=== PATIENT | male | born 1970 | race American Indian/Alaskan Native ===

== ENCOUNTER 2021-03-15 19:10 | Inpatient (IN) | payer OTHER ==
[2021-03-15] MEDS ORDERED: DILTIAZEM DRIP BOLUS FROM BAG 1 MG SOLN IV ONE (19:22)
[2021-03-15] MEDS ORDERED: HEPARIN SODIUM 1,000 UN/ML (10ML VL) IV ONE (19:23)
[2021-03-15] MEDS ORDERED: HEPARIN SODIUM 1,000 UN/ML (10ML VL) IV PRN (19:23)
[2021-03-15] MEDS ORDERED: HEPARIN SOD,PORK IN 0.45% NACL 25,000 UNIT in 0.45% NACL 1 250ML.BAG IV SCH (19:30)
[2021-03-15 19:45] LABS: Basophils # (A) 0.1 k/uL (0-0.2); Basophils % (A) 1 %; Eosinophils # (A) 0.1 k/uL (0-0.7); Eosinophils % (A) 1 %; HCT 45.4 % (39.0-53.0); HGB 15.4 gm/dL (13.0-17.5); Lymphocytes # (A) 2.3 k/uL (1.0-4.8); Lymphocytes % (A) 13 %; MCH 31.4 pg (25.0-35.0); MCV 92.3 fL (80.0-100.0); Mean Platelet Volume 9.3; Monocytes % (A) 6 %; Neutrophils # (A) 14.1 k/uL (1.3-7.7); Neutrophils % (A) 79 %; Platelet Count 253 k/uL (150-450); RBC 4.92 m/uL (4.30-5.90); WBC 17.9 k/uL (3.8-10.6)
[2021-03-15 19:55] LABS: Partial Thromboplastin Time 24.5 sec (22.0-30.0); Prothrombin Time 10.8 sec (9.0-12.0)
[2021-03-15 19:56] LABS: Albumin 4.1 g/dL (3.5-5.0); Calcium 9.7 mg/dL (8.4-10.2); Magnesium 1.5 mg/dL (1.6-2.3); Total Bilirubin 0.8 mg/dL (0.2-1.3); Total Protein 7.5 g/dL (6.3-8.2)
[2021-03-15 20:16] LABS: Potassium 4.7 mmol/L (3.5-5.1)
[2021-03-15] MEDS: DILTIAZEM 125 MG in SODIUM CHLORIDE 0.9% 100 ML IV SCH (20:20)
[2021-03-15] MEDS ORDERED: MAGNESIUM SULFATE-D5W PMX 1 GM in DEXTROSE/WATER 1 100ML.BAG IVPB ONE (21:06)
[2021-03-15] MEDS ORDERED: NITROGLYCERIN SL TABS 0.4 MG TAB SUBLINGUAL PRN (21:12)
[2021-03-15] MEDS ORDERED: atenoloL 50 MG TAB PO STA (21:15)
--- NOTE | 2021-03-15 21:32 | ED ---
Anxiety HPI - General Chief Complaint: Chest Pain Stated Complaint: Afib Time Seen by Provider: 03/15/21 19:22 Source: patient, EMS Mode of arrival: EMS - Related Data Home Medications: Home Medications Medication Instructions Recorded Confirmed Albuterol Inhaler (Mhu) [Ventolin 1 - 2 puff INHALATION Q6HR PRN 06/10/16 08/05/16 Hfa Inhaler] Aspirin [Adult Low Dose Aspirin EC] 81 mg PO DAILY 06/10/16 08/05/16 Atenolol [Tenormin] 100 mg PO DAILY 06/10/16 08/05/16 Atorvastatin [Lipitor] 40 mg PO HS 06/10/16 08/05/16 Cholecalciferol [Vitamin D3] 2,000 unit PO DAILY 06/10/16 08/05/16 Digoxin [Lanoxin] 125 mcg PO DAILY 06/10/16 08/05/16 Furosemide [Lasix] 40 mg PO DAILY 06/10/16 08/05/16 Gabapentin [Neurontin] 300 mg PO BID 06/10/16 08/05/16 Ibuprofen [Motrin] 800 mg PO BID PRN 06/10/16 08/05/16 Omeprazole [PriLOSEC] 20 mg PO AC-BRKFST 06/10/16 08/05/16 Potassium Chloride ER [K-Dur 10] 10 meq PO DAILY 06/10/16 08/05/16 Ranitidine HCl 150 mg PO BID 06/10/16 08/05/16 buPROPion [Wellbutrin] 150 mg PO BID 06/10/16 08/05/16 traMADol HCL [Ultram] 50 mg PO Q6HR PRN 06/10/16 08/05/16 Allergies/Adverse Reactions: Allergies Allergy/AdvReac Type Severity Reaction Status Date / Time No Known Allergies Allergy Verified 03/15/21 19:20 Review of Systems ROS Statement: Those systems with pertinent positive or pertinent negative responses have been documented in the HPI. ROS Other: All systems not noted in ROS Statement are negative. Past Medical History Past Medical History: Heart Failure, COPD, Hyperlipidemia, Pneumonia, Vascular Disorder History of Any Multi-Drug Resistant Organisms: None Reported Past Surgical History: Orthopedic Surgery Additional Past Surgical History / Comment(s): left foot 4 and 5th toe am putation Past Anesthesia/Blood Transfusion Reactions: No Reported Reaction Past Psychological History: Anxiety, Depression Smoking Status: Current every day smoker Past Alcohol Use History: None Reported Past Drug Use History: None Reported - Past Family History Father Family Medical History: Cancer, Congestive Heart Failure (CHF) General Exam Limitations: no limitations Course Vital Signs 03/15/21 03/15/21 03/15/21 19:15 20:39 21:05 Temperature 97.9 F Pulse Rate 119 H 109 H 110 H Respiratory 20 20 20 Rate Blood Pressure 137/94 130/88 O2 Sat by Pulse 98 98 Oximetry Procedures - [place] Protocol (Time Out) Nurse: Mariaelena Mcintosh Medical Decision Making - Lab Data Result diagrams: 03/15/21 19:23 03/15/21 19:23 Lab Results 03/15/21 03/15/21 03/15/21 Range/Units 19:23 19:23 19:23 WBC 17.9 H (3.8-10.6) k/uL RBC 4.92 (4.30-5.90) m/uL Hgb 15.4 (13.0-17.5) gm/dL Hct 45.4 (39.0-53.0) % MCV 92.3 (80.0-100.0) fL MCH 31.4 (25.0-35.0) pg MCHC 34.0 (31.0-37.0) g/dL RDW 14.0 (11.5-15.5) % Plt Count 253 (150-450) k/uL MPV 9.3 Neutrophils % 79 % Lymphocytes % 13 % Monocytes % 6 % Eosinophils % 1 % Basophils % 1 % Neutrophils # 14.1 H (1.3-7.7) k/uL Lymphocytes # 2.3 (1.0-4.8) k/uL Monocytes # 1.0 (0-1.0) k/uL Eosinophils # 0.1 (0-0.7) k/uL Basophils # 0.1 (0-0.2) k/uL PT 10.8 (9.0-12.0) sec INR 1.0 (<1.2) APTT 24.5 (22.0-30.0) sec D-Dimer 0.37 (<0.60) mg/L FEU Sodium 133 L (137-145) mmol/L Potassium 4.7 (3.5-5.1) mmol/L Chloride 98 (98-107) mmol/L Carbon Dioxide 26 (22-30) mmol/L Anion Gap 9 mmol/L BUN 26 H (9-20) mg/dL Creatinine 1.52 H (0.66-1.25) mg/dL Est GFR (CKD-EPI)AfAm 60 (>60 ml/min/1.73 sqM) Est GFR (CKD-EPI)NonAf 52 (>60 ml/min/1.73 sqM) Glucose 165 H (74-99) mg/dL Calcium 9.7 (8.4-10.2) mg/dL Magnesium 1.5 L (1.6-2.3) mg/dL Total Bilirubin 0.8 (0.2-1.3) mg/dL AST 21 (17-59) U/L ALT 23 (4-49) U/L Alkaline Phosphatase 98 (38-126) U/L Troponin I (0.000-0.034) ng/mL NT-Pro-B Natriuret Pep pg/mL Total Protein 7.5 (6.3-8.2) g/dL Albumin 4.1 (3.5-5.0) g/dL 03/15/21 03/15/21 Range/Units 19:23 19:23 WBC (3.8-10.6) k/uL RBC (4.30-5.90) m/uL Hgb (13.0-17.5) gm/dL Hct (39.0-53.0) % MCV (80.0-100.0) fL MCH (25.0-35.0) pg MCHC (31.0-37.0) g/dL RDW (11.5-15.5) % Plt Count (150-450) k/uL MPV Neutrophils % % Lymphocytes % % Monocytes % % Eosinophils % % Basophils % % Neutrophils # (1.3-7.7) k/uL Lymphocytes # (1.0-4.8) k/uL Monocytes # (0-1.0) k/uL Eosinophils # (0-0.7) k/uL Basophils # (0-0.2) k/uL PT (9.0-12.0) sec INR (<1.2) APTT (22.0-30.0) sec D-Dimer (<0.60) mg/L FEU Sodium (137-145) mmol/L Potassium (3.5-5.1) mmol/L Chloride (98-107) mmol/L Carbon Dioxide (22-30) mmol/L Anion Gap mmol/L BUN (9-20) mg/dL Creatinine (0.66-1.25) mg/dL Est GFR (CKD-EPI)AfAm (>60 ml/min/1.73 sqM) Est GFR (CKD-EPI)NonAf (>60 ml/min/1.73 sqM) Glucose (74-99) mg/dL Calcium (8.4-10.2) mg/dL Magnesium (1.6-2.3) mg/dL Total Bilirubin (0.2-1.3) mg/dL AST (17-59) U/L ALT (4-49) U/L Alkaline Phosphatase (38-126) U/L Troponin I 0.143 H* (0.000-0.034) ng/mL NT-Pro-B Natriuret Pep 219 pg/mL Total Protein (6.3-8.2) g/dL Albumin (3.5-5.0) g/dL
--- NOTE | 2021-03-15 21:43 | ED ---
Chest Pain HPI - General Chief Complaint: Chest Pain Stated Complaint: Afib Time Seen by Provider: 03/15/21 19:22 Source: patient, EMS Mode of arrival: EMS Limitations: no limitations - History of Present Illness Initial Comments: Dilan is a 51-year-old male with extensive past medical history for known A. fib, episodes of RVR CT in the past, diabetes morbid obesity. Patient reports that he has trouble keeping all his medications straightened getting refills on time. He did not get his cardiac meds refilled and he has been out of his digoxin and L Rosalinda for somewhere between 1 and 2 weeks. He has been experiencing some chest pressure and palpitations so he sought care at [facility] where he was found to be an a tachydysrhythmia with rates in the 220s. He was given adenosine and Cardizem and started on a Cardizem drip he apparently converted to a sinus rhythm for a short period of time and is transported to our hospital with no medications. Upon arrival the patient was again in A. fib RVR with a rate in the 120s. He was experiencing no active chest pain. - Related Data Home Medications Medication Instructions Recorded Confirmed Aspirin [Adult Low Dose Aspirin EC] 81 mg PO DAILY 06/10/16 03/15/21 Atorvastatin [Lipitor] 40 mg PO HS 06/10/16 03/15/21 Digoxin [Lanoxin] 125 mcg PO DAILY 06/10/16 03/15/21 Furosemide [Lasix] 40 mg PO DAILY 06/10/16 03/15/21 Omeprazole [PriLOSEC] 20 mg PO AC-BRKFST 06/10/16 03/15/21 Potassium Chloride ER [K-Dur 10] 10 meq PO DAILY 06/10/16 03/15/21 Albuterol Sulfate [Ventolin HFA] 1 - 2 puff INHALATION RT-Q6H PRN 03/15/21 03/15/21 Apixaban [Eliquis] 5 mg PO BID 03/15/21 03/15/21 Beclomethasone Dipropionate [Qvar 1 puff PO DIRECTED PRN 03/15/21 03/15/21 80mcg Redihaler] Cholecalciferol [Vitamin D3 (25 50 mcg PO DAILY 03/15/21 03/15/21 Mcg = 1000 Iu)] Fluticasone Propionate [Flovent 1 - 2 puff INHALATION RT-BID 03/15/21 03/15/21 Hfa 220 mcg] Insulin Glargine,Hum.rec.anlog 14 unit SQ HS 03/15/21 03/15/21 [Lantus Solostar Pen] Insulin Lispro [humaLOG Kwikpen] See Protocol SQ TID-W/MEALS PRN 03/15/21 RX: Amiodarone [Cordarone] 200 mg PO DAILY 03/15/21 03/15/21 RX: Famotidine 20 mg PO BID 03/15/21 03/15/21 RX: Gabapentin 600 mg PO TID 03/15/21 03/15/21 RX: Losartan Potassium [Cozaar] 25 mg PO DAILY 03/15/21 03/15/21 RX: Metoprolol Tartrate [Lopressor] 100 mg PO DAILY 03/15/21 03/15/21 RX: glipiZIDE [Glucotrol] 10 mg PO BID 03/15/21 03/15/21 RX: metFORMIN HCL [Glucophage] 1,000 mg PO BID 03/15/21 03/15/21 buPROPion SR [Wellbutrin SR] 150 mg PO BID 03/15/21 03/15/21 Allergies Allergy/AdvReac Type Severity Reaction Status Date / Time No Known Allergies Allergy Verified 03/15/21 21:43 Review of Systems ROS Statement: Those systems with pertinent positive or pertinent negative responses have been documented in the HPI. ROS Other: All systems not noted in ROS Statement are negative. EKG Findings - EKG Comments: EKG Findings:: EKG was obtained due to tachycardia, EKG obtained in 1913 rate is 119 rhythm is narrow complex irregularly irregular consistent with A. fib with RVR. No acute ST elevations or depressions no evidence of acute ischemia or infarction. 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 Past Anesthesia/Blood Transfusion Reactions: No Reported Reaction Past Psychological History: Anxiety, Depression Smoking Status: Current every day smoker Past Alcohol Use History: None Reported Past Drug Use History: None Reported - Past Family History Father Family Medical History: Cancer, Congestive Heart Failure (CHF) General Exam - General Exam Comments Initial Comments: Physical Exam GENERAL: Morbidly obese chronically ill-appearing gentleman in no acute distress HENT: Normocephalic, Atraumatic. EYES: PERRL, EOMI PULMONARY: Unlabored respirations CARDIOVASCULAR: Tachycardic irregular ABDOMEN: Obese, soft SKIN: On a venous stasis bilateral lower extremities : Deferred NEUROLOGIC: Patient is alert and oriented x3. Moving all extremities spontaneously MUSCULOSKELETAL: Normal extremities with adequate strength and full range of motion. No lower extremity swelling or edema. No calf tenderness. PSYCHIATRIC: Normal psychiatric evaluation. Limitations: no limitations Course Vital Signs 03/15/21 03/15/21 03/15/21 19:15 20:39 21:05 Temperature 97.9 F Pulse Rate 119 H 109 H 110 H Respiratory 20 20 20 Rate Blood Pressure 137/94 130/88 O2 Sat by Pulse 98 98 Oximetry Procedures - [place] Protocol (Time Out) Nurse: Mariaelena Mcintosh Chest Pain MDM - [facility] Patient was seen and evaluated, history is obtained from the patient and transferring doctor Cardiac workup was initiated Cardizem was resumed Labs resulted with elevated troponin this is likely type IIN STEMI due to demand ischemia with a heart rate greater than 200 Patient care was discussed with datastage developer Dr. Duran who agrees with Ivanna, D.O. blockers as prescribed for home medications, heparin drip and admission with cardiology consultation Disposition Clinical Impression: Acute non-ST elevation myocardial infarction (NSTEMI), Atrial fibrillation with RVR, Medication non-compliance due to excessive pill burden Disposition: ADMITTED IP TO THIS HOSP Condition: Serious Is patient prescribed a controlled substance at d/c from ED?: No
[2021-03-16] MEDS ORDERED: VANCOMYCIN IV PER PHARMACY 1 EACH MISC MISCELLANE PRN (03:38)
--- NOTE | 2021-03-16 03:48 | P.HPIM ---
History of Present Illness H&P Date: 03/15/21 Chief Complaint: A. fib with RVR 51-year-old male with complex past medical history including congestive heart failure, A. fib on Eliquis, diabetes mellitus, morbid obesity Patient went to [facility] today as he felt his heart was racing with chest pressure not feeling well he reports that he has missed his cardiac meds for the past 2 weeks due to being sick and an out of hospital for similar issue of chest pain. Upon arrival to [facility] patient was found to be in SVT he received some adenosine and then later Cardizem drip for A. fib with RVR apparently patient has converted to sinus rhythm and Cardizem drip was stopped prior to transfer upon arrival to our facility patient was found to be in A. fib with RVR again he was restarted on Cardizem drip and heparin drip. Patient reports some chest pressure from earlier currently resolved. He denies any upper respiratory infection symptoms. However he does report draining wounds in his right leg along with bilateral leg discomfort. He denies any injuries but does report history of chronic skin changes bilateral lower extremities with chronic edema. He denies any GI bleeding denies any fevers or chills at home denies any nausea vomiting chest symptoms Review of Systems Pertinent positives as noted in HPI. All other systems were reviewed and are neg ative 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 Past Anesthesia/Blood Transfusion Reactions: No Reported Reaction Past Psychological History: Anxiety, Depression Smoking Status: Current every day smoker Past Alcohol Use History: None Reported Past Drug Use History: None Reported - Past Family History Father Family Medical History: Cancer, Congestive Heart Failure (CHF) Medications and Allergies Home Medications Medication Instructions Recorded Confirmed Type Aspirin [Adult Low Dose Aspirin EC] 81 mg PO DAILY 06/10/16 03/15/21 History Atorvastatin [Lipitor] 40 mg PO HS 06/10/16 03/15/21 History Digoxin [Lanoxin] 125 mcg PO DAILY 06/10/16 03/15/21 History Furosemide [Lasix] 40 mg PO DAILY 06/10/16 03/15/21 History Omeprazole [PriLOSEC] 20 mg PO AC-BRKFST 06/10/16 03/15/21 History Potassium Chloride ER [K-Dur 10] 10 meq PO DAILY 06/10/16 03/15/21 History Albuterol Sulfate [Ventolin HFA] 1 - 2 puff INHALATION RT-Q6H PRN 03/15/21 03/15/21 History Amiodarone [Cordarone] 200 mg PO DAILY 03/15/21 03/15/21 History Apixaban [Eliquis] 5 mg PO BID 03/15/21 03/15/21 History Beclomethasone Dipropionate [Qvar 1 puff PO DIRECTED PRN 03/15/21 03/15/21 History 80mcg Redihaler] Cholecalciferol [Vitamin D3 (25 50 mcg PO DAILY 03/15/21 03/15/21 History Mcg = 1000 Iu)] Famotidine 20 mg PO BID 03/15/21 03/15/21 History Fluticasone Propionate [Flovent 1 - 2 puff INHALATION RT-BID 03/15/21 03/15/21 History Hfa 220 mcg] Gabapentin 600 mg PO TID 03/15/21 03/15/21 History Insulin Glargine,Hum.rec.anlog 14 unit SQ HS 03/15/21 03/15/21 History [Lantus Solostar Pen] Insulin Lispro [humaLOG Kwikpen] See Protocol SQ TID-W/MEALS PRN 03/15/21 03/15/21 History Losartan Potassium [Cozaar] 25 mg PO DAILY 03/15/21 03/15/21 History Metoprolol Tartrate [Lopressor] 100 mg PO DAILY 03/15/21 03/15/21 History buPROPion SR [Wellbutrin SR] 150 mg PO BID 03/15/21 03/15/21 History glipiZIDE [Glucotrol] 10 mg PO BID 03/15/21 03/15/21 History metFORMIN HCL [Glucophage] 1,000 mg PO BID 03/15/21 03/15/21 History Allergies Allergy/AdvReac Type Severity Reaction Status Date / Time No Known Allergies Allergy Verified 03/15/21 21:43 Physical Exam Vitals: Vital Signs Temp Pulse Pulse Resp BP Pulse Ox 03/15/21 21:05 110 H 20 03/15/21 20:39 109 H 20 130/88 98 03/15/21 19:30 115 H 20 03/15/21 19:15 97.9 F 119 H 20 137/94 98 Intake and Output 03/15/21 03/15/21 03/16/21 14:59 22:59 06:59 Intake Total 50.883 Balance 50.883 Intake: Intake, IV Titration 50.883 Amount Heparin Sod,Pork in 0.45% 50.883 NaCl 25,000 unit In 0.45 % NaCl 1 250ml.bag @ 5.2 UNITS/KG/HR 9.977 mls/hr IV .Q24H [facility] Rx#: [id number] Other: Weight 191.87 kg Constitutional: No acute distress, conversant, pleasant, morbidly obese Eyes: Anicteric sclerae, moist conjunctiva, Pupils equal round reactive to light ENMT: NC/AT, patient has one nodule on the vertex of the head, and 2 smaller nodules on the forehead along the hairline Oropharynx clear, no erythema, or exudates Neck: Supple, FROM, no masses, or JVD No carotid bruits No thyromegaly Lungs: Clear to auscultation Clear to percussion Normal respiratory effort, no accessory muscle use Cardiovascular: Heart regular in rate and rhythm, No murmurs, gallops, or rubs No peripheral edema Abdominal: Soft Nontender, no guarding, rebound or rigidity Abdomen moving with respiration Normoactive bowel sounds No hepatomegaly, No splenomegaly No palpable mass No abdominal wall hernia noted Skin: Chronic skin changes bilateral legs with draining wound over the right leg no tenderness palpation of the calf muscles Extremities: No digital cyanosis No clubbing Pedal pulse undetectable with bilateral pedal edema Radial pulses intact and symmetrical No calf tenderness Psychiatric: Alert and oriented to person, place and time Appropriate affect fair judgement Neuro Muscles Strength 4/5 in all 4 extremities Sensation to light touch grossly present throughout Cranial nerves II-XII grossly intact No focal sensory deficits Lymphatics: no palpable cervical or supraclavicular , or inguinal lymph nodes Results CBC & Chem 7: 03/15/21 19:23 03/15/21 19:23 Labs: Abnormal Lab Results - Last 24 Hours (Table) 03/15/21 03/15/21 03/15/21 Range/Units 19:23 19:23 19:23 WBC 17.9 H (3.8-10.6) k/uL Neutrophils # 14.1 H (1.3-7.7) k/uL APTT (22.0-30.0) sec Sodium 133 L (137-145) mmol/L BUN 26 H (9-20) mg/dL Creatinine 1.52 H (0.66-1.25) mg/dL Glucose 165 H (74-99) mg/dL Magnesium 1.5 L (1.6-2.3) mg/dL Troponin I 0.143 H* (0.000-0.034) ng/mL 03/16/21 03/16/21 Range/Units 00:50 00:50 WBC (3.8-10.6) k/uL Neutrophils # (1.3-7.7) k/uL APTT 30.6 H (22.0-30.0) sec Sodium (137-145) mmol/L BUN (9-20) mg/dL Creatinine (0.66-1.25) mg/dL Glucose (74-99) mg/dL Magnesium (1.6-2.3) mg/dL Troponin I 0.111 H* (0.000-0.034) ng/mL Assessment and Plan Assessment: A. fib with RVR secondary to medical noncompliance NSTEMI Hypomagnesemia Resume Cardizem drip Heparin drip Resume beta agnes per cardiology recommendation Cardiology consult Replace magnesium Monitor vital signs Cardiac telemetry Resume cardiac meds aspirin and statin trend troponins Cellulitis of the right leg with draining blister Chronic bilateral edema with skin changes Vancomycin empirically Follow-up cultures Vascular surgery consult for wound care and chronic bilateral edema Hypertension Resume beta agnes Resume losartan Diabetes mellitus Resume Lantus Insulin sliding scale Morbidly obese Patient counseled regarding lifestyle modification and weight loss COPD DuoNeb's when necessary DVT prophylaxis patient currently on heparin drip for A. fib with RVR nticipated length of stay less than 2 midnights Anticipated discharge home Full codee
[2021-03-16 04:10] LABS: Basophils # (A) 0.1 k/uL (0-0.2); Basophils % (A) 1 %; Eosinophils # (A) 0.2 k/uL (0-0.7); Eosinophils % (A) 1 %; HCT 43.2 % (39.0-53.0); Lymphocytes # (A) 2.8 k/uL (1.0-4.8); Lymphocytes % (A) 18 %; MCH 30.5 pg (25.0-35.0); MCHC 32.4 g/dL (31.0-37.0); MCV 94.1 fL (80.0-100.0); Mean Platelet Volume 9.4; Monocytes % (A) 7 %; Neutrophils # (A) 10.9 k/uL (1.3-7.7); Neutrophils % (A) 71 %; Platelet Count 229 k/uL (150-450); RBC 4.59 m/uL (4.30-5.90); RDW 13.7 % (11.5-15.5); WBC 15.3 k/uL (3.8-10.6)
[2021-03-16] MEDS ORDERED: VANCOMYCIN 2,250 MG in SODIUM CHLORIDE 0.9% 500 ML 500 ML IVPB ONE (04:15)
[2021-03-16 04:23] LABS: INR 1.1 (<1.2); Prothrombin Time 11.5 sec (9.0-12.0)
[2021-03-16] MEDS: FAMOTIDINE 20 MG TAB PO SCH ×2 (08:04→21:16)
[2021-03-16] MEDS: ASPIRIN 81 MG PO SCH (08:04)
[2021-03-16] MEDS: GABAPENTIN 300 MG CAP PO SCH ×3 (08:04→21:22)
[2021-03-16] MEDS: FUROSEMIDE 40 MG TAB PO SCH (08:04)
[2021-03-16] MEDS: PANTOPRAZOLE 40 MG TABLET PO SCH (08:04)
[2021-03-16 08:09] LABS: Glucose,Whole Blood 142 mg/dL (75-99)
[2021-03-16] MEDS: INSULIN ASPART (NovoLOG) 100 UNIT/ML VIAL SQ SCH ×4 (08:15→21:16)
[2021-03-16] MEDS: LOSARTAN 25 MG TAB PO SCH (08:15)
[2021-03-16] MEDS ORDERED: ASPIRIN 325 MG TAB PO SCH (09:00)
[2021-03-16] MEDS ORDERED: METOPROLOL TARTRATE 50 MG TAB PO SCH (09:00)
[2021-03-16] MEDS ORDERED: lisinopriL 10 MG TAB PO SCH (09:00)
[2021-03-16] MEDS: buPROPion SR 150 MG TABLET.ER PO SCH ×2 (10:03→21:15)
--- NOTE | 2021-03-16 10:40 | P.CRDCN ---
History of Present Illness Consult date: 03/16/21 Consult reason: atrial fibrillation Chief complaint: Nausea, vomiting, dizziness, chest pain History of present illness: This is Froylan Montanez NP dictating a consult on this patient on behalf of Dr. Malik. The patient was interviewed and examined. HPI: [Patient's a pleasant 51-year-old male initially presented to [facility] by EMS after calling 911 due to significant nausea, vomiting, dizziness, chest pain, shortness of breath. Patient was initially taken to [facility] where he was found to be in atrial fibrillation with rapid ventricular response with a heart rate in the 200s. Patient was started on IV Cardizem and heparin, and transferred to [facility]. Review of records from [place] demonstrates patient blood pressure at that time was 94/71. EKG was reviewed from [place] which actually demonstrates 1:1 atrial tachycardia. Patient has a past medical history that includes hypertension, COPD, hyperlipidemia, morbid obesity, poorly controlled type 2 diabetes, cigarette smoking, SVT, and A. fib with RVR. Patient normally sees Dr. Sims. Patient reports that he was at home and started having significant heart palpitations or shortness of breath, which then led to nausea and vomiting. Patient has had this happen before and knew that he was probably in atrial fibrillation, so called EMS.] ROS: [No fever, chills, or rigors] [no cough, phlegm, or expectoration] [no nausea, vomiting, or diarrhea] [no hematuria, dysuria] [Patient has significant swelling in his bilateral lower legs, the right one is draining fluid. This is a chronic problem per the patient.] [no strokes or seizures] [no skin lesions] EXAMINATION: GENERAL: Well-appearing, obese and in no acute distress. NECK: Supple without JVD or thyromegaly. LUNGS: Breath sounds clear to auscultation bilaterally. Respiration equal and unlabored. No wheezes, rales or rhonchi. HEART: Accelerated rate and irregular rhythm without murmurs, rubs or gallops. S1 and S2 heard. EXTREMITIES: Normal range of motion, no edema. No clubbing or cyanosis. Peripheral pulses intact and strong. REVIEW OF LABS, ECG & MEDICAL DATA: LABS: White count 15.3, hemoglobin 14.0, platelets 229, PT 11.5, INR 1.1, sodium 133, potassium 4.7, chloride 98, B1 26, creatinine 1.5 today, calcium 9.7, magnesium 1.5, troponin-0.143, 0.079; BNP 219. EKG: Atrial tachycardia with 1:1 conduction IMAGING: No imaging done at this time VITALS: Temp 98.8, pulse 109, respirations 20, blood pressure 107/79, O2 saturation 97% on room air IMPRESSION/PLAN: 1. Atrial tachycardia with 1:1 conduction-will increase patient's metoprolol to 100 mg twice a day. We will restart the patient on a Eliquis, discontinue heparin 6 hours after Eliquis is given. 2. Elevated troponin-troponins are currently trending down, this is most likely due to patient's demand ischemia secondary to significantly elevated heart rate. Thank you for the consult and allowing us to participate in the care of this patient. 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 Past Anesthesia/Blood Transfusion Reactions: No Reported Reaction Past Psychological History: Anxiety, Depression Smoking Status: Current every day smoker Past Alcohol Use History: None Reported Past Drug Use History: None Reported - Past Family History Father Family Medical History: Cancer, Congestive Heart Failure (CHF) Medications and Allergies Home Medications Medication Instructions Recorded Confirmed Type Aspirin [Adult Low Dose Aspirin EC] 81 mg PO DAILY 06/10/16 03/15/21 History Atorvastatin [Lipitor] 40 mg PO HS 06/10/16 03/15/21 History Digoxin [Lanoxin] 125 mcg PO DAILY 06/10/16 03/15/21 History Furosemide [Lasix] 40 mg PO DAILY 06/10/16 03/15/21 History Omeprazole [PriLOSEC] 20 mg PO AC-BRKFST 06/10/16 03/15/21 History Potassium Chloride ER [K-Dur 10] 10 meq PO DAILY 06/10/16 03/15/21 History Albuterol Sulfate [Ventolin HFA] 1 - 2 puff INHALATION RT-Q6H PRN 03/15/21 03/15/21 History Amiodarone [Cordarone] 200 mg PO DAILY 03/15/21 03/15/21 History Apixaban [Eliquis] 5 mg PO BID 03/15/21 03/15/21 History Cholecalciferol [Vitamin D3 (25 50 mcg PO DAILY 03/15/21 03/15/21 History Mcg = 1000 Iu)] Famotidine 20 mg PO BID 03/15/21 03/15/21 History Fluticasone Propionate [Flovent 1 - 2 puff INHALATION RT-BID 03/15/21 03/15/21 History Hfa 220 mcg] Gabapentin 600 mg PO TID 03/15/21 03/15/21 History Insulin Glargine,Hum.rec.anlog 14 unit SQ HS 03/15/21 03/15/21 History [Lantus Solostar Pen] Insulin Lispro [humaLOG Kwikpen] See Protocol SQ TID-W/MEALS PRN 03/15/21 03/15/21 History Losartan Potassium [Cozaar] 25 mg PO DAILY 03/15/21 03/15/21 History Metoprolol Tartrate [Lopressor] 100 mg PO DAILY 03/15/21 03/15/21 History buPROPion SR [Wellbutrin SR] 150 mg PO BID 03/15/21 03/15/21 History glipiZIDE [Glucotrol] 10 mg PO BID 03/15/21 03/15/21 History metFORMIN HCL [Glucophage] 1,000 mg PO BID 03/15/21 03/15/21 History Allergies Allergy/AdvReac Type Severity Reaction Status Date / Time No Known Allergies Allergy Verified 03/15/21 21:43 Physical Exam Vitals: Vital Signs Temp Pulse Pulse Resp BP Pulse Ox 03/16/21 10:00 107/79 03/16/21 09:30 105 H 107/79 03/16/21 09:00 108 H 107/79 03/16/21 08:30 109 H 107/79 03/16/21 08:00 108 H 107/79 03/16/21 07:50 98.8 F 109 H 20 107/79 97 03/16/21 06:26 111 H 18 113/89 99 03/16/21 04:42 108 H 18 118/80 97 03/15/21 21:05 110 H 20 03/15/21 20:39 109 H 20 130/88 98 03/15/21 19:30 115 H 20 03/15/21 19:15 97.9 F 119 H 20 137/94 98 Intake and Output 03/15/21 03/16/21 03/16/21 22:59 06:59 14:59 Intake Total 50.883 120.095 Balance 50.883 120.095 Intake: Intake, IV Titration 50.883 120.095 Amount Heparin Sod,Pork in 0.45% 50.883 120.095 NaCl 25,000 unit In 0.45 % NaCl 1 250ml.bag @ 5.2 UNITS/KG/HR 9.977 mls/hr IV .Q24H [facility] Rx#: [id number] Other: Weight 191.87 kg Results 03/16/21 03:48 03/15/21 19:23 Cardiac Enzymes 03/15/21 03/15/21 03/16/21 Range/Units 19:23 19:23 00:50 AST 21 (17-59) U/L Troponin I 0.143 H* 0.111 H* (0.000-0.034) ng/mL 03/16/21 Range/Units 03:48 AST (17-59) U/L Troponin I 0.079 H* (0.000-0.034) ng/mL Coagulation 03/15/21 03/16/21 03/16/21 Range/Units 19:23 00:50 03:48 PT 10.8 11.5 (9.0-12.0) sec APTT 24.5 30.6 H (22.0-30.0) sec 03/16/21 Range/Units 07:26 PT (9.0-12.0) sec APTT 47.7 H (22.0-30.0) sec CBC 03/15/21 03/16/21 Range/Units 19:23 03:48 WBC 17.9 H 15.3 H (3.8-10.6) k/uL RBC 4.92 4.59 (4.30-5.90) m/uL Hgb 15.4 14.0 (13.0-17.5) gm/dL Hct 45.4 43.2 (39.0-53.0) % Plt Count 253 229 (150-450) k/uL Comprehensive Metabolic Panel 03/15/21 Range/Units 19:23 Sodium 133 L (137-145) mmol/L Potassium 4.7 (3.5-5.1) mmol/L Chloride 98 (98-107) mmol/L Carbon Dioxide 26 (22-30) mmol/L BUN 26 H (9-20) mg/dL Creatinine 1.52 H (0.66-1.25) mg/dL Glucose 165 H (74-99) mg/dL Calcium 9.7 (8.4-10.2) mg/dL AST 21 (17-59) U/L ALT 23 (4-49) U/L Alkaline Phosphatase 98 (38-126) U/L Total Protein 7.5 (6.3-8.2) g/dL Albumin 4.1 (3.5-5.0) g/dL Current Medications Generic Name Dose Route Start Last Admin Trade Name Freq PRN Reason Stop Dose Admin Aspirin 81 mg 03/16/21 09:00 03/16/21 08:04 Aspirin 81 Mg PO 81 mg DAILY DOLORES Administration Atorvastatin Calcium 40 mg 03/16/21 21:00 Atorvastatin 40 Mg Tab PO HS DOLORES Bupropion HCl 150 mg 03/16/21 09:00 03/16/21 10:03 Bupropion Sr 150 Mg Tablet.Er PO Not Given BID DOLORES Famotidine 20 mg 03/16/21 09:00 03/16/21 08:04 Famotidine 20 Mg Tab PO 20 mg BID DOLORES Administration Furosemide 40 mg 03/16/21 09:00 03/16/21 08:04 Furosemide 40 Mg Tab PO 40 mg DAILY DOLORES Administration Gabapentin 600 mg 03/16/21 09:00 03/16/21 08:04 Gabapentin 300 Mg Cap PO 600 mg TID DOLORES Administration Heparin Sodium (Porcine) 0 unit 03/15/21 19:23 03/16/21 01:48 Heparin Sodium 1,000 Un/Ml (10ml Vl) IV 9,593 unit PER PROTOCOL PRN Administration Low PTT Protocol Diltiazem HCl 125 mg/ Sodium 125 mls @ 0 mls/hr 03/15/21 19:30 03/15/21 20:20 Chloride IV 5 mg/hr .Q0M DOLORES 5 mls/hr Administration Protocol Per Protocol Heparin Sodium/Sodium Chloride 250 mls @ 9.977 mls/hr 03/15/21 19:30 03/16/21 09:15 25,000 unit/ Sodium Chloride IV 8.2 units/kg/hr .Q24H DOLORES 15.733 mls/hr Titration Protocol 5.2 UNITS/KG/HR Vancomycin HCl 2,500 mg/ 500 mls @ 167 mls/hr 03/16/21 17:00 Sodium Chloride IVPB Q12H DOLORES Insulin Aspart 0 unit 03/16/21 07:30 03/16/21 08:15 Insulin Aspart (Novolog) 100 Unit/Ml Vial SQ 1 unit ACHS [facility] Administration Protocol Insulin Detemir 14 unit 03/16/21 21:00 Insulin Detemir (Levemir) 100 Unit/Ml Syr SQ HS [facility] Losartan Potassium 25 mg 03/16/21 09:00 03/16/21 08:15 Losartan 25 Mg Tab PO 25 mg DAILY [facility] Administration Metoprolol Tartrate 100 mg 03/16/21 09:00 03/16/21 08:04 Metoprolol Tartrate 50 Mg Tab PO 100 mg DAILY [facility] Administration Miscellaneous Information 0 each 03/18/21 16:00 Vancomycin Trough Due 1 Each Misc MISCELLANE 03/18/21 16:01 DIRECTED ONE Nitroglycerin 0.4 mg 03/15/21 21:12 Nitroglycerin Sl Tabs 0.4 Mg Tab SUBLINGUAL Q5M PRN Chest Pain Pantoprazole Sodium 40 mg 03/16/21 07:30 03/16/21 08:04 Pantoprazole 40 Mg Tablet PO 40 mg AC-BRKFST [facility] Administration Intake and Output 03/15/21 03/16/21 03/16/21 22:59 06:59 14:59 Intake Total 50.883 120.095 Balance 50.883 120.095 Intake: Intake, IV Titration 50.883 120.095 Amount Heparin Sod,Pork in 0.45% 50.883 120.095 NaCl 25,000 unit In 0.45 % NaCl 1 250ml.bag @ 5.2 UNITS/KG/HR 9.977 mls/hr IV .Q24H [facility] Rx#: [id number] Other: Weight 191.87 kg 03/16/21 03:48 03/15/21 19:23
--- NOTE | 2021-03-16 11:41 | P.PN ---
Subjective Progress Note Date: 03/16/21 Patient is doing well today, still has some mild chest discomfort, palpitations. Objective - Vital Signs Vital signs: Vital Signs Temp 98.5 F 03/16/21 11:03 Pulse 102 H 03/16/21 11:03 Resp 16 03/16/21 11:03 BP 93/67 03/16/21 11:03 Pulse Ox 97 03/16/21 11:03 Intake & Output 03/15/21 03/16/21 03/16/21 18:59 06:59 18:59 Intake Total 50.883 120.095 Balance 50.883 120.095 Weight 191.87 kg Intake: Intake, IV Titration 50.883 120.095 Amount Heparin Sod,Pork in 0.45% 50.883 120.095 NaCl 25,000 unit In 0.45 % NaCl 1 250ml.bag @ 5.2 UNITS/KG/HR 9.977 mls/hr IV .Q24H [facility] Rx#: [id number] - Exam Gen: awake, alert HEENT: normocephalic, atraumatic, good hearing acuity, moist mucous membranes Resp: good air exchange, breathing comfortably with no accessory muscle use CVS: good distal perfusion x 4, GI: soft, NTTP, ND : no SPT, no CVAT, sanders catheter not present MSK: no pitting edema, no clubbing Neuro: non-focal, moving all extremities Psych: cooperative, euthymic mood - Labs CBC & Chem 7: 03/16/21 03:48 03/15/21 19:23 Labs: Abnormal Lab Results - Last 24 Hours (Table) 03/15/21 03/15/21 03/15/21 Range/Units 19:23 19:23 19:23 WBC 17.9 H (3.8-10.6) k/uL Neutrophils # 14.1 H (1.3-7.7) k/uL APTT (22.0-30.0) sec Sodium 133 L (137-145) mmol/L BUN 26 H (9-20) mg/dL Creatinine 1.52 H (0.66-1.25) mg/dL Glucose 165 H (74-99) mg/dL POC Glucose (mg/dL) (75-99) mg/dL Magnesium 1.5 L (1.6-2.3) mg/dL Troponin I 0.143 H* (0.000-0.034) ng/mL 03/16/21 03/16/21 03/16/21 Range/Units 00:50 00:50 03:48 WBC 15.3 H (3.8-10.6) k/uL Neutrophils # 10.9 H (1.3-7.7) k/uL APTT 30.6 H (22.0-30.0) sec Sodium (137-145) mmol/L BUN (9-20) mg/dL Creatinine (0.66-1.25) mg/dL Glucose (74-99) mg/dL POC Glucose (mg/dL) (75-99) mg/dL Magnesium (1.6-2.3) mg/dL Troponin I 0.111 H* (0.000-0.034) ng/mL 03/16/21 03/16/21 03/16/21 Range/Units 03:48 07:26 08:06 WBC (3.8-10.6) k/uL Neutrophils # (1.3-7.7) k/uL APTT 47.7 H (22.0-30.0) sec Sodium (137-145) mmol/L BUN (9-20) mg/dL Creatinine (0.66-1.25) mg/dL Glucose (74-99) mg/dL POC Glucose (mg/dL) 142 H (75-99) mg/dL Magnesium (1.6-2.3) mg/dL Troponin I 0.079 H* (0.000-0.034) ng/mL Assessment and Plan Assessment: A. fib with RVR secondary to medical noncompliance NSTEMI Hypomagnesemia Resume Cardizem drip Heparin drip Resume beta agnes per cardiology recommendation Cardiology consult Replace magnesium Monitor vital signs Cardiac telemetry Resume cardiac meds aspirin and statin trend troponins Cellulitis of the right leg with draining blister Chronic bilateral edema with skin changes Vancomycin empirically Follow-up cultures Vascular surgery consult for wound care and chronic bilateral edema Hypertension Resume beta agnes Resume losartan Diabetes mellitus Resume Lantus Insulin sliding scale Morbidly obese Patient counseled regarding lifestyle modification and weight loss COPD DuoNeb's when necessary DVT prophylaxis patient currently on heparin drip for A. fib with RVR nticipated length of stay less than 2 midnights Anticipated discharge home Full codee
[2021-03-16 11:47] LABS: Chol/HDL Ratio 2.23 Ratio; LDL Cholesterol,Calculated 51.1 mg/dL (0.0-131.0); VLDL Calculation 11.82 mg/dL (5.00-40.00)
[2021-03-16 12:25] LABS: Glucose,Whole Blood 162 mg/dL (75-99)
[2021-03-16] MEDS: APIXABAN 5 MG TAB PO SCH ×2 (12:25→21:16)
--- NOTE | 2021-03-16 14:45 | P.GSCN ---
History of Present Illness Consult date: 03/16/21 Reason for Consult: Chronic bilateral lower extremity edema Requesting physician: Magda Parikh History of present illness: This is a 51-year-old gentleman who follows with Dr. Dylon Eden on an outpatient basis for his primary care service. He has a past medical history significant for congestive heart failure, hypertension, hyperlipidemia, type 2 diabetes mellitus, atrial fibrillation on Eliquis for anticoagulation, lower extremity edema, chronic ongoing tobacco abuse smokes about 1 pack of cigarettes per day and morbid obesity with a BMI of 57.4 kg/m. He presented to the emergency department at [facility] on 03/15/2021 with complaints of chest pain, associated with shortness of breath, diaphoresis, nausea and vomiting. Subsequently he was transferred to [facility] for further evaluation and treatment. While in [place] she did have some SVT which was treated with adenosine and also had some atrial fibrillation with RVR and is currently on a Cardizem drip at 5 mg per hour. He denies any recent fever, chills, diarrhea, constipation, headache, hematemesis, hemoptysis or cough. The patient does report that he has chronic skin issues and swelling to his bilateral lower extremities and occasionally uses wraps at home for treatment. Due to the patient's swelling to his bilateral lower extremities a consult was placed to Dr. Olegario Haynes for further evaluation and treatment recommendations. Review of Systems A 14 point review of systems was completed and was negative except as mentioned in the HPI. Past Medical History Past Medical History: Heart Failure, COPD, Hyperlipidemia, Pneumonia, Vascular Disorder Additional Past Medical History / Comment(s): Chronic edema to his bilateral lower extremities. History of Any Multi-Drug Resistant Organisms: None Reported Past Surgical History: Orthopedic Surgery Additional Past Surgical History / Comment(s): left foot 4 and 5th toe a mputation Past Anesthesia/Blood Transfusion Reactions: No Reported Reaction Past Psychological History: Anxiety, Depression Smoking Status: Current every day smoker Past Alcohol Use History: None Reported Past Drug Use History: None Reported - Past Family History Father Family Medical History: Cancer, Congestive Heart Failure (CHF) Mother Additional Family Medical History / Comment(s): Mother is legally blind Medications and Allergies Home Medications Medication Instructions Recorded Confirmed Type Aspirin [Adult Low Dose Aspirin EC] 81 mg PO DAILY 06/10/16 03/15/21 History Atorvastatin [Lipitor] 40 mg PO HS 06/10/16 03/15/21 History Digoxin [Lanoxin] 125 mcg PO DAILY 06/10/16 03/15/21 History Furosemide [Lasix] 40 mg PO DAILY 06/10/16 03/15/21 History Omeprazole [PriLOSEC] 20 mg PO AC-BRKFST 06/10/16 03/15/21 History Potassium Chloride ER [K-Dur 10] 10 meq PO DAILY 06/10/16 03/15/21 History Albuterol Sulfate [Ventolin HFA] 1 - 2 puff INHALATION RT-Q6H PRN 03/15/21 03/15/21 History Amiodarone [Cordarone] 200 mg PO DAILY 03/15/21 03/15/21 History Apixaban [Eliquis] 5 mg PO BID 03/15/21 03/15/21 History Cholecalciferol [Vitamin D3 (25 50 mcg PO DAILY 03/15/21 03/15/21 History Mcg = 1000 Iu)] Famotidine 20 mg PO BID 03/15/21 03/15/21 History Fluticasone Propionate [Flovent 1 - 2 puff INHALATION RT-BID 03/15/21 03/15/21 History Hfa 220 mcg] Gabapentin 600 mg PO TID 03/15/21 03/15/21 History Insulin Glargine,Hum.rec.anlog 14 unit SQ HS 03/15/21 03/15/21 History [Lantus Solostar Pen] Insulin Lispro [humaLOG Kwikpen] See Protocol SQ TID-W/MEALS PRN 03/15/21 03/15/21 History Losartan Potassium [Cozaar] 25 mg PO DAILY 03/15/21 03/15/21 History Metoprolol Tartrate [Lopressor] 100 mg PO DAILY 03/15/21 03/15/21 History buPROPion SR [Wellbutrin SR] 150 mg PO BID 03/15/21 03/15/21 History glipiZIDE [Glucotrol] 10 mg PO BID 03/15/21 03/15/21 History metFORMIN HCL [Glucophage] 1,000 mg PO BID 03/15/21 03/15/21 History Allergies Allergy/AdvReac Type Severity Reaction Status Date / Time No Known Allergies Allergy Verified 03/15/21 21:43 Surgical - Exam Vital Signs Temp Pulse Resp BP Pulse Ox 97.9 F 119 H 20 137/94 98 03/15/21 19:15 03/15/21 19:15 03/15/21 19:15 03/15/21 19:15 03/15/21 19:15 - General Morbidly obese with a BMI of 57.4 kg/m well developed, well nourished, no distress, no pain - Eyes PERRL, normal ocular movement, no pale, no icteric - ENT normal pinna, normal nares, normal mucosa, no hearing loss, no congestion, poor longterm (Loose teeth) - Neck Neck is supple, no lymphadenopathy. no masses, no bruits, trachea midline, no venous distension - Respiratory Lungs essentially clear throughout. Respirations are symmetrical and nonlabored. - Cardiovascular Regular rhythm and rate. S1 and S2 present, negative for S3, gallop or murmur. +1 edema to his bilateral lower extremities. - Abdomen Abdomen is soft, nontender and nondistended. Active bowel sounds present in all 4 abdominal quadrants. No guarding or rigidity. No organomegaly appreciated. Morbidly obese. - Integumentary Blistered area to his right lower extremity mid mcgill no rash, no growths - Neurologic Patient is awake, alert and oriented 3. Cranial nerves II through XII grossly intact. No focal deficits. - Musculoskeletal Moves all 4 extremities with equal strength bilateral. Results - Labs 03/16/21 03:48 03/15/21 19:23 Abnormal Lab Results - Last 24 Hours (Table) 03/15/21 03/15/21 03/15/21 Range/Units 19:23 19:23 19:23 WBC 17.9 H (3.8-10.6) k/uL Neutrophils # 14.1 H (1.3-7.7) k/uL APTT (22.0-30.0) sec Sodium 133 L (137-145) mmol/L BUN 26 H (9-20) mg/dL Creatinine 1.52 H (0.66-1.25) mg/dL Glucose 165 H (74-99) mg/dL POC Glucose (mg/dL) (75-99) mg/dL Magnesium 1.5 L (1.6-2.3) mg/dL Troponin I 0.143 H* (0.000-0.034) ng/mL 03/16/21 03/16/21 03/16/21 Range/Units 00:50 00:50 03:48 WBC 15.3 H (3.8-10.6) k/uL Neutrophils # 10.9 H (1.3-7.7) k/uL APTT 30.6 H (22.0-30.0) sec Sodium (137-145) mmol/L BUN (9-20) mg/dL Creatinine (0.66-1.25) mg/dL Glucose (74-99) mg/dL POC Glucose (mg/dL) (75-99) mg/dL Magnesium (1.6-2.3) mg/dL Troponin I 0.111 H* (0.000-0.034) ng/mL 03/16/21 03/16/21 03/16/21 Range/Units 03:48 07:26 08:06 WBC (3.8-10.6) k/uL Neutrophils # (1.3-7.7) k/uL APTT 47.7 H (22.0-30.0) sec Sodium (137-145) mmol/L BUN (9-20) mg/dL Creatinine (0.66-1.25) mg/dL Glucose (74-99) mg/dL POC Glucose (mg/dL) 142 H (75-99) mg/dL Magnesium (1.6-2.3) mg/dL Troponin I 0.079 H* (0.000-0.034) ng/mL 03/16/21 Range/Units 12:24 WBC (3.8-10.6) k/uL Neutrophils # (1.3-7.7) k/uL APTT (22.0-30.0) sec Sodium (137-145) mmol/L BUN (9-20) mg/dL Creatinine (0.66-1.25) mg/dL Glucose (74-99) mg/dL POC Glucose (mg/dL) 162 H (75-99) mg/dL Magnesium (1.6-2.3) mg/dL Troponin I (0.000-0.034) ng/mL Diabetes panel 03/15/21 03/16/21 Range/Units 19:23 03:48 Sodium 133 L (137-145) mmol/L Potassium 4.7 (3.5-5.1) mmol/L Chloride 98 (98-107) mmol/L Carbon Dioxide 26 (22-30) mmol/L BUN 26 H (9-20) mg/dL Creatinine 1.52 H (0.66-1.25) mg/dL Glucose 165 H (74-99) mg/dL Calcium 9.7 (8.4-10.2) mg/dL AST 21 (17-59) U/L ALT 23 (4-49) U/L Alkaline Phosphatase 98 (38-126) U/L Total Protein 7.5 (6.3-8.2) g/dL Albumin 4.1 (3.5-5.0) g/dL Triglycerides 59.10 (0.00-149.00) mg/dL HDL Cholesterol 51.10 (40.00-60.00) mg/dL Calcium panel 03/15/21 Range/Units 19:23 Calcium 9.7 (8.4-10.2) mg/dL Albumin 4.1 (3.5-5.0) g/dL Pituitary panel 03/15/21 Range/Units 19:23 Sodium 133 L (137-145) mmol/L Potassium 4.7 (3.5-5.1) mmol/L Chloride 98 (98-107) mmol/L Carbon Dioxide 26 (22-30) mmol/L BUN 26 H (9-20) mg/dL Creatinine 1.52 H (0.66-1.25) mg/dL Glucose 165 H (74-99) mg/dL Calcium 9.7 (8.4-10.2) mg/dL Adrenal panel 03/15/21 Range/Units 19:23 Sodium 133 L (137-145) mmol/L Potassium 4.7 (3.5-5.1) mmol/L Chloride 98 (98-107) mmol/L Carbon Dioxide 26 (22-30) mmol/L BUN 26 H (9-20) mg/dL Creatinine 1.52 H (0.66-1.25) mg/dL Glucose 165 H (74-99) mg/dL Calcium 9.7 (8.4-10.2) mg/dL Total Bilirubin 0.8 (0.2-1.3) mg/dL AST 21 (17-59) U/L ALT 23 (4-49) U/L Alkaline Phosphatase 98 (38-126) U/L Total Protein 7.5 (6.3-8.2) g/dL Albumin 4.1 (3.5-5.0) g/dL Assessment and Plan Assessment: 1. Peripheral edema with cellulitis and erythema to his bilateral lower extremities, history of toes 4 and 5 to his left foot amputation around 15-20 years ago 2. Atrial fibrillation with RVR 3. Hypertension 4. Hyperlipidemia 5. Type 2 diabetes mellitus 6. Morbid obesity with a BMI of 57.4 kg/m 7. Chronic ongoing tobacco use and smokes about one pack per day. Plan: The patient was seen and examined as bedside in the emergency department. His chart diagnostics reviewed. His case was discussed in detail with Dr. Olegario Haynes. At this point we will place Opticel Ag to his right leg blistered area, and we will place gentle John wraps to his bilateral lower extremities. Recommend when not sitting up for meals or up ambulating, he is to have his legs elevated 6-8 inches higher than the level of his heart. Medical management of her comorbidities per primary care service and other consultants. More recommen dations follow based on patient's clinical course. Thank you Dr. Parikh for this consult and we will look forward to working with you in the care of this patient. Time with Patient: Greater than 30
[2021-03-16] MEDS ORDERED: GABAPENTIN 300 MG CAP PO ONE (16:15)
[2021-03-16] MEDS: VANCOMYCIN 2,500 MG in SODIUM CHLORIDE 0.9% 500 ML 500 ML IVPB SCH (18:16)
[2021-03-16] MEDS: DILTIAZEM 125 MG in SODIUM CHLORIDE 0.9% 100 ML IV SCH (18:17)
[2021-03-16 20:41] LABS: Glucose,Whole Blood 214 mg/dL (75-99)
[2021-03-16] MEDS: METOPROLOL TARTRATE 50 MG TAB PO SCH (21:15)
[2021-03-16] MEDS: ATORVASTATIN 40 MG TAB PO SCH (21:16)
[2021-03-16] MEDS: INSULIN DETEMIR (LEVEMIR) 100 UNIT/ML SYR SQ SCH (21:16)
[2021-03-17] MEDS: VANCOMYCIN 2,500 MG in SODIUM CHLORIDE 0.9% 500 ML 500 ML IVPB SCH ×2 (05:54→17:46)
[2021-03-17 06:30] LABS: Glucose,Whole Blood 162 mg/dL (75-99)
[2021-03-17] MEDS: PANTOPRAZOLE 40 MG TABLET PO SCH (06:37)
[2021-03-17] MEDS: INSULIN ASPART (NovoLOG) 100 UNIT/ML VIAL SQ SCH ×4 (06:37→20:35)
[2021-03-17] MEDS: GABAPENTIN 300 MG CAP PO SCH ×3 (08:45→20:34)
[2021-03-17] MEDS: METOPROLOL TARTRATE 50 MG TAB PO SCH ×2 (08:45→20:35)
[2021-03-17] MEDS: FUROSEMIDE 40 MG TAB PO SCH (08:45)
[2021-03-17] MEDS: buPROPion SR 150 MG TABLET.ER PO SCH ×2 (08:45→20:57)
[2021-03-17] MEDS: APIXABAN 5 MG TAB PO SCH ×2 (08:46→20:35)
[2021-03-17] MEDS: LOSARTAN 25 MG TAB PO SCH (08:46)
[2021-03-17] MEDS: ASPIRIN 81 MG PO SCH (08:46)
[2021-03-17] MEDS: FAMOTIDINE 20 MG TAB PO SCH ×2 (08:46→20:35)
--- NOTE | 2021-03-17 08:51 | P.PN ---
Subjective Progress Note Date: 03/17/21 Principal diagnosis: Peripheral edema with cellulitis and erythema to bilateral lower extremities, atrial fibrillation with RVR present on admission. 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 He denies chest pain or shortness of breath. Denies pain to his lower extremities. Bilateral lower extremities are John wrapped, however his legs are not elevated per order. Discussion had again with patient regarding needed to quit smoking, control blood sugars, elevate bilateral lower extremities above the level of his heart when not sitting up to eat or toilet. Objective - Vital Signs Vital signs: Vital Signs Temp 97.8 F 03/17/21 04:50 Pulse 88 03/17/21 04:50 Resp 18 03/17/21 04:50 BP 104/55 03/17/21 04:50 Pulse Ox 98 03/17/21 04:50 Intake & Output 03/16/21 03/17/21 03/17/21 18:59 06:59 18:59 Intake Total 347.845 480 Balance 347.845 480 Weight 192.3 kg Intake: Intake, IV Titration 229.845 Amount Diltiazem 125 mg In 109.75 Sodium Chloride 0.9% 100 ml @ Per Protocol IV .Q0M [facility] Rx#:[id number] Heparin Sod,Pork in 0.45% 120.095 NaCl 25,000 unit In 0.45 % NaCl 1 250ml.bag @ 5.2 UNITS/KG/HR 9.977 mls/hr IV .Q24H [facility] Rx#: [id number] Oral 118 480 Other: Voiding Method Toilet # Voids 1 - Exam CONSTITUTIONAL: Appears comfortable, cooperative, no acute distress RESPIRATORY: Lungs sounds diminished bilaterally. Respirations even, nonlabored. Currently on room air with oxygen saturation 98%. CARDIOVASCULAR: S1, S2 present. Irregular rate and rhythm, atrial fibrillation on telemetry. Palpable peripheral pulses bilaterally. Bilateral lower extremity edema present. No calf pain or tenderness noted. GASTROINTESTINAL: Abdomen soft, nontender, nondistended, obese. Active bowel sounds present 4 quadrants. Tolerating diet. GENITOURINARY: Continues to void INTEGUMENTARY: Skin is warm and dry. Right lower extremity blister present without increased redness or drainage, covered with absorptive silver. Bilateral lower extremities John wrapped from toes to knees NEUROLOGIC: Cranial nerves II through XII intact MUSKULOSKELETAL: Able to move all extremities, strength equal bilaterally PSYCHIATRIC: Alert and oriented to person place and time, appropriate affect, intact judgment and insight - Labs CBC & Chem 7: 03/16/21 03:48 03/15/21 19:23 Labs: Abnormal Lab Results - Last 24 Hours (Table) 03/16/21 03/16/21 03/17/21 Range/Units 12:24 20:03 06:04 POC Glucose (mg/dL) 162 H 214 H 162 H (75-99) mg/dL Microbiology - Last 24 Hours (Table) 03/16/21 04:35 Blood Culture - Preliminary Blood No Growth after 24 hours 03/16/21 04:20 Blood Culture - Preliminary Blood No Growth after 24 hours Assessment and Plan Assessment: 1. Peripheral edema with cellulitis and erythema to bilateral lower extremities, history of amputation to toes 4 and 5 of left foot around 15-20 years ago 2. Atrial fibrillation with RVR, present on admission 3. Hypertension 4. Hyperlipidemia 5. Type 2 diabetes mellitus 6. Morbid obesity 7. Chronic ongoing tobacco use Plan: 1. Continue to apply absorptive silver daily, John wrap bilateral lower extremities from toes to knees daily. 2. Lower extremities should be elevated above the level of his heart at all times except when a toileting and eating 3. Patient was again counseled regarding smoking cessation, control of blood sugars, Mediterranean diet was suggested 4. Medical management of other comorbidities per primary care service 5. Will continue to see again on an as-needed basis. Please call if any questions. Patient may follow up with Dr. Haynes in the wound care center upon discharge Time with Patient: Greater than 30
[2021-03-17] MEDS ORDERED: METOPROLOL TARTRATE 50 MG TAB PO STA (09:58)
--- NOTE | 2021-03-17 11:23 | P.PN ---
Subjective Progress Note Date: 03/17/21 Patient's chest discomfort has resolved. Patient's heart rates are improved, cardiology continues to titrate medications. Objective - Vital Signs Vital signs: Vital Signs Temp 98.0 F 03/17/21 08:00 Pulse 94 03/17/21 08:00 Resp 18 03/17/21 08:00 BP 108/74 03/17/21 08:00 Pulse Ox 96 03/17/21 08:00 Intake & Output 03/16/21 03/17/21 03/17/21 18:59 06:59 18:59 Intake Total 347.845 480 Balance 347.845 480 Weight 192.3 kg Intake: Intake, IV Titration 229.845 Amount Diltiazem 125 mg In 109.75 Sodium Chloride 0.9% 100 ml @ Per Protocol IV .Q0M [facility] Rx#:[id number] Heparin Sod,Pork in 0.45% 120.095 NaCl 25,000 unit In 0.45 % NaCl 1 250ml.bag @ 5.2 UNITS/KG/HR 9.977 mls/hr IV .Q24H [facility] Rx#: [id number] Oral 118 480 Other: Voiding Method Toilet # Voids 1 - Exam Gen: awake, alert HEENT: normocephalic, atraumatic, good hearing acuity, moist mucous membranes Resp: good air exchange, breathing comfortably with no accessory muscle use CVS: good distal perfusion x 4, GI: soft, NTTP, ND : no SPT, no CVAT, sanders catheter not present MSK: no pitting edema, no clubbing Neuro: non-focal, moving all extremities Psych: cooperative, euthymic mood - Labs CBC & Chem 7: 03/16/21 03:48 03/17/21 09:17 Labs: Abnormal Lab Results - Last 24 Hours (Table) 03/16/21 03/16/21 03/17/21 Range/Units 12:24 20:03 06:04 POC Glucose (mg/dL) 162 H 214 H 162 H (75-99) mg/dL Microbiology - Last 24 Hours (Table) 03/16/21 04:35 Blood Culture - Preliminary Blood No Growth after 24 hours 03/16/21 04:20 Blood Culture - Preliminary Blood No Growth after 24 hours Assessment and Plan Assessment: A. fib with RVR secondary to medical noncompliance NSTEMI Hypomagnesemia Continue Cardizem drip Heparin drip Resume beta agnes per cardiology recommendation Cardiology consult Replace magnesium Monitor vital signs Cardiac telemetry Resume cardiac meds aspirin and statin Cellulitis of the right leg with draining blister Chronic bilateral edema with skin changes Vancomycin empirically Follow-up cultures Vascular surgery consult for wound care and chronic bilateral edema Wound care follow-up on discharge Patient is empirically on antibiotics Hypertension Resume beta agnes Resume losartan Diabetes mellitus Resume Lantus Insulin sliding scale Morbidly obese Patient counseled regarding lifestyle modification and weight loss COPD DuoNeb's when necessary DVT prophylaxis patient currently on heparin drip for A. fib with RVR nticipated length of stay less than 2 midnights Anticipated discharge home Full code
[2021-03-17 12:02] LABS: Glucose,Whole Blood 168 mg/dL (75-99)
[2021-03-17 12:07] VITALS: BMI 57.4
--- NOTE | 2021-03-17 12:38 | P.PN ---
Subjective Progress Note Date: 03/17/21 Principal diagnosis: Atrial fibrillation This is Froylan bradford NP, dictating a progress note on behalf of Dr. Malik. Patient was interviewed and examined. Patient's a pleasant 51-year-old male who initially presented to the hospital with atrial tachycardia with 1-1 conduction with a heart rate over 200. Patient is doing better today. Patient is tolerating Eliquis, and heparin was discontinued. Patient's heart rate continues in the 90s. GENERAL: Well-appearing, well-nourished and in no acute distress. NECK: Supple without JVD or thyromegaly. LUNGS: Breath sounds clear to auscultation bilaterally. Respiration equal and unlabored. No wheezes, rales or rhonchi. HEART: Regular rate and rhythm without murmurs, rubs or gallops. S1 and S2 heard. EXTREMITIES: Normal range of motion, no edema. No clubbing or cyanosis. Peripheral pulses intact and strong. VITALS: Temp 98.0, pulse rate 94, respirations 18, blood pressure 108/74, O2 saturation 96% on room air TELEMETRY:[Normal sinus rhythm] LABS: [Creatinine 1.10] IMPRESSION/PLAN: 1. Atrial tachycardia with one-to-one conduction-we will increase metoprolol to 150 mg twice a day. Patient's Cardizem can be stopped tomorrow morning at 5 AM. Decrease patient's losartan to 12.5 mg daily. 2. Elevated troponin-due to demand ischemia. No need to continue to check troponins. The patient has been seen and evaluated. Plan of care has been reviewed and agreed upon by Dr. Malik. Objective - Vital Signs Vital signs: Vital Signs Temp 98.0 F 03/17/21 08:00 Pulse 94 03/17/21 08:00 Resp 18 03/17/21 08:00 BP 108/74 03/17/21 08:00 Pulse Ox 96 03/17/21 08:00 Intake & Output 03/16/21 03/17/21 03/17/21 18:59 06:59 18:59 Intake Total 347.845 480 Balance 347.845 480 Weight 192.3 kg 192.3 kg Intake: Intake, IV Titration 229.845 Amount Diltiazem 125 mg In 109.75 Sodium Chloride 0.9% 100 ml @ Per Protocol IV .Q0M [facility] Rx#:[id number] Heparin Sod,Pork in 0.45% 120.095 NaCl 25,000 unit In 0.45 % NaCl 1 250ml.bag @ 5.2 UNITS/KG/HR 9.977 mls/hr IV .Q24H [facility] Rx#: [id number] Oral 118 480 Other: Voiding Method Toilet # Voids 1 1 # Bowel Movements 1 - Labs CBC & Chem 7: 03/16/21 03:48 03/17/21 09:17 Labs: Abnormal Lab Results - Last 24 Hours (Table) 03/16/21 03/17/21 03/17/21 Range/Units 20:03 06:04 12:00 POC Glucose (mg/dL) 214 H 162 H 168 H (75-99) mg/dL Microbiology - Last 24 Hours (Table) 03/16/21 04:35 Blood Culture - Preliminary Blood No Growth after 24 hours 03/16/21 04:20 Blood Culture - Preliminary Blood No Growth after 24 hours
[2021-03-17 16:54] LABS: Glucose,Whole Blood 204 mg/dL (75-99)
[2021-03-17] MEDS: ATORVASTATIN 40 MG TAB PO SCH (20:35)
[2021-03-17] MEDS: INSULIN DETEMIR (LEVEMIR) 100 UNIT/ML SYR SQ SCH (20:35)
[2021-03-17 20:37] LABS: Glucose,Whole Blood 215 mg/dL (75-99)
[2021-03-18 04:58] VITALS: RESP 18
[2021-03-18] MEDS: VANCOMYCIN 2,500 MG in SODIUM CHLORIDE 0.9% 500 ML 500 ML IVPB SCH (05:12)
[2021-03-18 06:36] LABS: Glucose,Whole Blood 163 mg/dL (75-99)
[2021-03-18] MEDS: PANTOPRAZOLE 40 MG TABLET PO SCH (06:51)
[2021-03-18] MEDS: INSULIN ASPART (NovoLOG) 100 UNIT/ML VIAL SQ SCH ×2 (06:51→12:13)
[2021-03-18 08:40] LABS: Basophils # (A) 0.1 k/uL (0-0.2); Basophils % (A) 1 %; Eosinophils # (A) 0.3 k/uL (0-0.7); Eosinophils % (A) 2 %; HCT 38.9 % (39.0-53.0); HGB 13.2 gm/dL (13.0-17.5); Lymphocytes # (A) 2.8 k/uL (1.0-4.8); Lymphocytes % (A) 24 %; MCH 31.3 pg (25.0-35.0); MCHC 33.9 g/dL (31.0-37.0); MCV 92.4 fL (80.0-100.0); Mean Platelet Volume 9.8; Monocytes # (A) 0.9 k/uL (0-1.0); Monocytes % (A) 8 %; Neutrophils # (A) 7.5 k/uL (1.3-7.7); Neutrophils % (A) 63 %; Platelet Count 235 k/uL (150-450); RBC 4.21 m/uL (4.30-5.90); RDW 13.9 % (11.5-15.5); WBC 11.8 k/uL (3.8-10.6)
[2021-03-18] MEDS ORDERED: LOSARTAN 25 MG TAB PO SCH (09:00)
[2021-03-18 09:11] LABS: African American GFR (CKD) >90 (>60 ml/min/1.73 sqM); Anion Gap 10 mmol/L; Blood Urea Nitrogen 18 mg/dL (9-20); Calcium 8.7 mg/dL (8.4-10.2); Carbon Dioxide 23 mmol/L (22-30); Chloride 100 mmol/L (98-107); Glucose 161 mg/dL (74-99); Magnesium 1.7 mg/dL (1.6-2.3); Non-African American GFR(CKD) 78 (>60 ml/min/1.73 sqM); Potassium 4.3 mmol/L (3.5-5.1); Sodium 133 mmol/L (137-145)
[2021-03-18] MEDS: ASPIRIN 81 MG PO SCH (09:17)
[2021-03-18] MEDS: FAMOTIDINE 20 MG TAB PO SCH (09:17)
[2021-03-18] MEDS: GABAPENTIN 300 MG CAP PO SCH (09:17)
[2021-03-18] MEDS: FUROSEMIDE 40 MG TAB PO SCH (09:17)
[2021-03-18] MEDS: METOPROLOL TARTRATE 50 MG TAB PO SCH (09:18)
[2021-03-18] MEDS: APIXABAN 5 MG TAB PO SCH (09:18)
[2021-03-18] MEDS: buPROPion SR 150 MG TABLET.ER PO SCH (09:18)
[2021-03-18 10:51] VITALS: TEMP 98.1
[2021-03-18 11:53] LABS: Glucose,Whole Blood 156 mg/dL (75-99)
--- NOTE | 2021-03-18 12:36 | P.PN ---
Subjective Progress Note Date: 03/18/21 Principal diagnosis: Atrial fibrillation This is Froylan bradford NP, dictating a progress note on behalf of Dr. Malik. Patient was interviewed and examined. Patient's pleasant 51-year-old male who initially presented to the hospital with atrial tachycardia with 11 conduction with a heart rate of over 200. Patient continues to remain tachycardic with a heart rate in the sub-100s. A repeat EKG was completed while her on the floor rounding, and the patient continues to demonstrate atrial tachycardia with 2:1 conduction. Patient is scheduled for a cardioversion next week, patient should delay this by at least a couple weeks as he was off his Eliquis. GENERAL: Well-appearing, well-nourished and in no acute distress. NECK: Supple without JVD or thyromegaly. LUNGS: Breath sounds clear to auscultation bilaterally. Respiration equal and unlabored. No wheezes, rales or rhonchi. HEART: Accelerated rate and regular rhythm without murmurs, rubs or gallops. S1 and S2 heard. EXTREMITIES: Normal range of motion, bilateral peripheral edema, legs currently wrapped in John wraps. No clubbing or cyanosis. Peripheral pulses intact and strong. VITALS: [Temp 98.1, pulse rate 102, respirations 18, blood pressure 114/83, O2 saturation 98% on room air] TELEMETRY: [Atrial tachycardia] LABS: [White count 11.8, hemoglobin 13.2, platelets 235, sodium 133, potassium 4.3, BUN 18, creatinine 1.08, calcium 8.7, magnesium 1.7] IMPRESSION/PLAN: [1. Atrial tachycardia with 2:1 conduction-patient with outpatient cardioversion for atrial tachycardia. However due to him not taking anticoagulants before admission, the patient should delay his cardioversion by a couple weeks. Patient can be discharged on the Eliquis as prescribed. Patient should continue metoprolol 150 mg twice a day. Patient can continue losartan 12.5 mg daily. Patient may also continue Lasix 40 mg daily. From a cardiac standpoint patient is ready for discharge. If the patient's condition changes please do not hesitate to call. The patient has been seen and evaluated. Plan of care has been reviewed and agreed upon by Dr. Malik.] Objective - Vital Signs Vital signs: Vital Signs Temp 98.1 F 03/18/21 08:00 Pulse 102 H 03/18/21 08:00 Resp 18 03/18/21 08:00 BP 114/83 03/18/21 08:00 Pulse Ox 98 03/18/21 08:00 Intake & Output 03/17/21 03/18/21 03/18/21 18:59 06:59 18:59 Intake Total 716 51 118 Balance 716 51 118 Weight 192.3 kg 171.3 kg Intake: Intake, IV Titration 0 51 Amount Diltiazem 125 mg In 0 51 Sodium Chloride 0.9% 100 ml @ Per Protocol IV .Q0M [facility] Rx#:[id number] Oral 716 118 Other: Voiding Method Toilet Toilet # Voids 1 1 # Bowel Movements 1 - Labs CBC & Chem 7: 03/18/21 07:53 03/18/21 07:53 Labs: Abnormal Lab Results - Last 24 Hours (Table) 03/17/21 03/17/21 03/18/21 Range/Units 16:52 20:27 06:12 WBC (3.8-10.6) k/uL RBC (4.30-5.90) m/uL Hct (39.0-53.0) % Sodium (137-145) mmol/L Glucose (74-99) mg/dL POC Glucose (mg/dL) 204 H 215 H 163 H (75-99) mg/dL 03/18/21 03/18/21 03/18/21 Range/Units 07:53 07:53 11:51 WBC 11.8 H (3.8-10.6) k/uL RBC 4.21 L (4.30-5.90) m/uL Hct 38.9 L (39.0-53.0) % Sodium 133 L (137-145) mmol/L Glucose 161 H (74-99) mg/dL POC Glucose (mg/dL) 156 H (75-99) mg/dL Microbiology - Last 24 Hours (Table) 03/16/21 04:35 Blood Culture - Preliminary Blood No Growth after 48 hours 03/16/21 04:20 Blood Culture - Preliminary Blood No Growth after 48 hours
[2021-03-18 12:59] VITALS: BP 112/73; PULSE 94
[2021-03-18] MEDS ORDERED: VANCOMYCIN TROUGH DUE 1 EACH MISC MISCELLANE ONE (16:00)
--- NOTE | 2021-03-18 17:02 | P.DS ---
Providers Date of admission: 03/15/21 21:14 Expected date of discharge: 03/18/21 Attending physician: Magda Parikh MD Consults: 03/15/21 21:14 Consult Physician Urgent Consulting Provider: Lucille Duran Consult Reason/Comments: NSTEMI Do you want consulting provider notified?: Already Contacted 03/16/21 03:52 Consult Physician Routine Consulting Provider: Olegario Haynes Consult Reason/Comments: chronic leg edema Do you want consulting provider notified?: Yes, Notify in am Primary care physician: Michel Eden MD Hospital Course: 51-year-old male with complex past medical history including congestive heart failure, A. fib on Eliquis, diabetes mellitus, morbid obesity felt his heart was racing with chest pressure after having missed his cardiac meds for the past 2 weeks due to being sick and an out of hospital for similar issue of chest pain. Patient admitted for evaluation of elevated troponin and A Fib with RVR. A. fib with RVR secondary to medical noncompliance Chronic Diastolic Heart Failure Hypomagnesemia Patient was started on Cardizem drip, Heparin drip. Cardiology consulted and titrated medications. His metoprolol was increased to 150mg BID. His cardiac meds including ASA/Statin were resumed. Electrolytes were repleted. Dilt gtt was titrated off and patients HR was controlled by time of discharge. Pt will f/u with PCP and cardiology. 30 day supply of his cardiac medications were sent to pharmacy. Cellulitis of the right leg with draining blister Chronic bilateral edema with skin changes Vancomycin started empirically. Vascular surgery was consulted for wound care. Pt was discharged with follow up to wound care with CARIE wrappings for lymphedema. No abx prescribed on discharge. Hypertension Beta agnes uptitrated, losartan continued with no change. Diabetes mellitus No changes to home regimen. Counseled extensively on compliance with DM meds. Morbidly obese Patient counseled regarding lifestyle modification and weight loss COPD DuoNeb's when necessary, no changes made to home meds on discharge. I spent 48 minutes coordinating this complex discharge. Assessment: Gen: awake, alert HEENT: normocephalic, atraumatic, good hearing acuity, moist mucous membranes Resp: good air exchange, breathing comfortably with no accessory muscle use CVS: good distal perfusion x 4, GI: soft, NTTP, ND : no SPT, no CVAT, sanders catheter not present MSK: no pitting edema, no clubbing Neuro: non-focal, moving all extremities Psych: cooperative, euthymic mood Patient Condition at Discharge: Serious Plan - Discharge Summary Discharge Rx Participant: Yes New Discharge Prescriptions: New Metoprolol Tartrate [Lopressor] 150 mg PO BID #180 tab Continue Aspirin [Adult Low Dose Aspirin EC] 81 mg PO DAILY Omeprazole [PriLOSEC] 20 mg PO AC-T Albuterol Sulfate [Ventolin HFA] 1 - 2 puff INHALATION RT-Q6H PRN PRN Reason: Shortness Of Breath buPROPion SR [Wellbutrin SR] 150 mg PO BID Cholecalciferol [Vitamin D3 (25 Mcg = 1000 Iu)] 50 mcg PO DAILY Fluticasone Propionate [Flovent Hfa 220 mcg] 1 - 2 puff INHALATION RT-BID Famotidine 20 mg PO BID Insulin Glargine,Hum.rec.anlog [Lantus Solostar Pen] 14 unit SQ HS #1 each Furosemide [Lasix] 40 mg PO DAILY #30 tab Atorvastatin [Lipitor] 40 mg PO HS #30 tab Gabapentin 600 mg PO TID Apixaban [Eliquis] 5 mg PO BID Losartan Potassium [Cozaar] 25 mg PO DAILY #30 tab metFORMIN HCL [Glucophage] 1,000 mg PO BID #60 tab glipiZIDE [Glucotrol] 10 mg PO BID #60 tab Insulin Lispro [humaLOG Kwikpen] See Protocol SQ TID-W/MEALS PRN #1 each PRN Reason: HYPERGLYCEMIA Discontinued Digoxin [Lanoxin] 125 mcg PO DAILY Potassium Chloride ER [K-Dur 10] 10 meq PO DAILY Metoprolol Tartrate [Lopressor] 100 mg PO DAILY Amiodarone [Cordarone] 200 mg PO DAILY Discharge Medication List Aspirin [Adult Low Dose Aspirin EC] 81 mg PO DAILY 06/10/16 [History] Omeprazole [PriLOSEC] 20 mg PO [id number]-BRKFST 06/10/16 [History] Albuterol Sulfate [Ventolin HFA] 1 - 2 puff INHALATION RT-Q6H PRN 03/15/21 [History] Apixaban [Eliquis] 5 mg PO BID 03/15/21 [History] Cholecalciferol [Vitamin D3 (25 Mcg = 1000 Iu)] 50 mcg PO DAILY 03/15/21 [History] Famotidine 20 mg PO BID 03/15/21 [History] Fluticasone Propionate [Flovent Hfa 220 mcg] 1 - 2 puff INHALATION RT-BID 03/15/21 [History] Gabapentin 600 mg PO TID 03/15/21 [History] buPROPion SR [Wellbutrin SR] 150 mg PO BID 03/15/21 [History] Atorvastatin [Lipitor] 40 mg PO HS #30 tab 03/17/21 [Rx] Furosemide [Lasix] 40 mg PO DAILY #30 tab 03/17/21 [Rx] Insulin Glargine,Hum.rec.anlog [Lantus Solostar Pen] 14 unit SQ HS #1 each 02/20 11/08 [Rx] Insulin Lispro [humaLOG Kwikpen] See Protocol SQ TID-W/MEALS PRN #1 each 03/17/21 [Rx] Losartan Potassium [Cozaar] 25 mg PO DAILY #30 tab 03/17/21 [Rx] glipiZIDE [Glucotrol] 10 mg PO BID #60 tab 03/17/21 [Rx] metFORMIN HCL [Glucophage] 1,000 mg PO BID #60 tab 03/17/21 [Rx] Metoprolol Tartrate [Lopressor] 150 mg PO BID #180 tab 03/18/21 [Rx] Follow up Appointment(s)/Referral(s): Michel Eden MD [Primary Care Provider] - 1 Week (Please call to set up a follow-up appointment) [facility] [NON-STAFF] - 1 Week (Please call to set up a follow-up appoin tment.) Patient Instructions/Handouts: A-fib (Atrial Fibrillation) (DC) Activity/Diet/Wound Care/Special Instructions: Continue absorptive silver dressing change daily to right lower extremity blister. Wrap both legs with carie wraps from toes to knees daily. Elevate lower extremities above the level of the heart at all times when not eating or t oileting. No smoking. Control blood sugars. Discharge Disposition: HOME SELF-CARE
--- NOTE | 2021-03-21 13:10 | CDI ---
Documentation Clarification Form Date: 03/21/2021 01:01:00 PM From: Mary Shah Admit Date: 03/15/2021 09:14:00 PM Patient Name: Dilan Wagner Visit Number: [id number] Discharge Date: 03/18/2021 03:19:00 PM ATTENTION: The Clinical Documentation Specialists (CDI) and [facility] Coding Staff appreciate your assistance in clarifying documentation. Please respond to the clarification below the line at the bottom and electronically sign. The CDI & [facility] Coding staff will review the response and follow-up if needed. Please note: Queries are made part of the Legal Health Record. If you have any questions, please contact the author of this message via ITS. Dr. Magda Parikh Cellulitis of right leg is documented throughout the chart. Patient also has poorly controlled diabetes. Patient has had two toes amputated in the past. Additional clarification regarding the type of cellulitis is requested. History/risk factors: Diabetes, Obesity, tobacco, cellulitis and blisters Treatment: IV Vancomycin and Insulin Please clarify the type of cellulitis, if known: [ ] Cellulitis due to diabetes [ ] Cutaneous Abscess [ ] Chronic Cellulitis [ ] Acute Lymphangitis [ ] Other, please specify: [ ] Unable to determine unable to determine MTDD
== END 2021-03-18 15:19 | disposition home or self-care (01) | DRG 309 ==
LOC: EC 19:10 → 3SCARD 21:14
PROVIDERS: ADMIT Internal Medicine; ATTEND Internal Medicine
DX: I47.1 Supraventricular tachycardia (principal); I24.8 Other forms of acute ischemic heart disease; I50.32 Chronic diastolic (congestive) heart failure; Z68.43 Body mass index [BMI] 50.0-59.9, adult; L03.115 Cellulitis of right lower limb; I48.91 Unspecified atrial fibrillation; T44.7X6A Underdosing of beta-adrenoreceptor antagonists, initial encounter; Z91.128 Patient's intentional underdosing of medication regimen for other reason; Z91.19 Patient's noncompliance with other medical treatment and regimen; I11.0 Hypertensive heart disease with heart failure; E66.01 Morbid (severe) obesity due to excess calories; F17.210 Nicotine dependence, cigarettes, uncomplicated; E83.42 Hypomagnesemia; E78.5 Hyperlipidemia, unspecified; Z71.3 Dietary counseling and surveillance; F32.A Depression, unspecified; F41.9 Anxiety disorder, unspecified; I89.0 Lymphedema, not elsewhere classified; J44.9 Chronic obstructive pulmonary disease, unspecified; S80.821A Blister (nonthermal), right lower leg, initial encounter; Z20.822 Contact with and (suspected) exposure to COVID-19; Z79.01 Long term (current) use of anticoagulants; E11.9 Type 2 diabetes mellitus without complications; Z79.84 Long term (current) use of oral hypoglycemic drugs; Z79.82 Long term (current) use of aspirin; Z79.899 Other long term (current) drug therapy; Z82.1 Family history of blindness and visual loss; Z82.49 Family history of ischemic heart disease and other diseases of the circulatory system; Z89.429 Acquired absence of other toe(s), unspecified side; Z87.01 Personal history of pneumonia (recurrent)
CPT/HCPCS: 36415; 80048; 80053; 80061; 82565; 83735; 83880; 84484; 85025; 85379; 85610; 85730; 87040; 87635; 93005; 96374; 96375; 99285

== ENCOUNTER 2021-03-29 07:12 | Day surgery (SDC) | payer OTHER ==
[2021-03-27 16:08] VITALS: BMI 51.1
[~2021-03-29 07:12] MED LIST: LACTATED RINGERS 1,000 ML IV SCH; LIDOCAINE 1% (10MG/ML) FOR IV START INTRADERMA PRN; SODIUM CHLORIDE 0.9% 1,000 ML IV SCH
[2021-03-29 07:46] VITALS: TEMP 98.8
[2021-03-29 07:52] LABS: Glucose,Whole Blood 129 mg/dL (75-99)
[2021-03-29] MEDS ORDERED: LIDOCAINE 1% INJ 10MG/ML (20 ML MDV) ONE (09:11)
[2021-03-29] MEDS ORDERED: PROPOFOL 10 MG/ML 20 ML VIAL IV ONE (09:11)
[2021-03-29 09:36] VITALS: RESP 16
--- NOTE | 2021-03-29 09:37 | CE ---
CARDIAC ELECTROPHYSIOLOGY REPORT PERFORMING PHYSICIAN: Paul Arcos MD. PROCEDURE PERFORMED: Cardioversion of atrial fibrillation. INDICATION: Symptomatic atrial fibrillation. LEVEL OF SEDATION: The procedure was performed using propofol with [employer] in the room. PROCEDURE DESCRIPTION: After obtaining an informed consent, the patient was brought to the cardioversion suite. A pulse oximetry and heart rate monitors were attached to the patient. Subsequently, the patient was sedated using propofol. Successful cardioversion was performed using 75 joule with first attempt. CONCLUSION: Successful cardioversion of atrial fibrillation to normal sinus mechanism using 75 joules on first attempt. MMODL / IJN: [id number] /
[2021-03-29 12:19] VITALS: PULSE 109
[2021-03-29 12:24] VITALS: BP 131/59
== END 2021-03-29 12:08 | disposition home or self-care (01) ==
LOC: CATHCVL 07:12
PROVIDERS: ATTEND Internal Medicine Interventional Cardiology
DX: I48.19 Other persistent atrial fibrillation (principal); I10 Essential (primary) hypertension; E78.5 Hyperlipidemia, unspecified; F17.210 Nicotine dependence, cigarettes, uncomplicated; Z79.01 Long term (current) use of anticoagulants; Z79.84 Long term (current) use of oral hypoglycemic drugs; Z79.82 Long term (current) use of aspirin; Z79.4 Long term (current) use of insulin; Z79.899 Other long term (current) drug therapy; Z20.822 Contact with and (suspected) exposure to COVID-19
CPT/HCPCS: 92960; 87635; J2001; J2704

== ENCOUNTER 2021-08-16 09:59 | Day surgery (SDC) | payer OTHER ==
[2021-08-14 16:15] VITALS: BMI 51.2
[~2021-08-16 09:59] MED LIST changes: +DEXAMETHASONE SOD PHOSPHATE 4 MG/ML 1 ML VIAL IV ONE; +HYDROmorphone 0.5 MG/0.5 ML SYRINGE IVP PRN; +METOCLOPRAMIDE 5 MG/ML 2 ML VIAL IVP PRN; +MIDAZOLAM 2 MG/2 ML VIAL IV PRN; +ONDANSETRON 4 MG/2 ML VIAL IVP ONE
[2021-08-16] MEDS: APIXABAN 5 MG TAB PO SCH ×2 (10:34→21:51)
[2021-08-16 10:42] LABS: Glucose,Whole Blood 247 mg/dL (75-99)
[2021-08-16] MEDS ORDERED: INSULIN ASPART (NovoLOG) 100 UNIT/ML VIAL SQ ONE (10:52)
[2021-08-16] MEDS ORDERED: ceFAZolin 3 GM in SODIUM CHLORIDE 0.9% 100 ML IVPB ONE (13:18)
[2021-08-16] MEDS ORDERED: PROTAMINE SULFATE 10 MG/ML 5 ML VIAL IV ONE (14:10)
[2021-08-16] MEDS ORDERED: MIDAZOLAM 2 MG/2 ML VIAL ONE (14:10)
[2021-08-16] MEDS ORDERED: LIDOCAINE 2% INJ 20 MG/ML (2 ML VIAL) ONE (14:10)
[2021-08-16] MEDS ORDERED: fentaNYL (PF) 50 MCG/ML 2 ML AMP ONE (14:10)
[2021-08-16] MEDS ORDERED: ceFAZolin 1,000 MG VIAL ONE (14:10)
[2021-08-16] MEDS ORDERED: HEPARIN SODIUM,PORCINE 10,000 UNIT/ML 1 ML VIAL ONE (14:10)
[2021-08-16] MEDS ORDERED: SODIUM CHLORIDE 0.9% 100 ML BAG ONE (14:10)
[2021-08-16] MEDS ORDERED: SUCCINYLCHOLINE CHLORIDE VIAL 200 MG/10 ML VIAL IV ONE (14:10)
[2021-08-16] MEDS ORDERED: PHENYLEPHRINE-0.9% NACL SYG 1,000 MCG/10 ML SYRINGE ONE (14:10)
[2021-08-16] MEDS ORDERED: PROPOFOL 10 MG/ML 20 ML VIAL IV ONE (14:10)
[2021-08-16] MEDS ORDERED: HEPARIN SOD,PORK IN 0.45% NACL 25,000 UNIT in 0.45% NACL 1 250ML.BAG IV ONE (14:20)
[2021-08-16] MEDS ORDERED: LIDOCAINE 1% PF 10 MG/ML (5 ML AMP) SQ ONE ×2 (14:41→14:50)
[2021-08-16 15:40] LABS: Glucose,Whole Blood 237 mg/dL (75-99)
[2021-08-16] MEDS ORDERED: IOPAMIDOL-370 50ML BTL INJ ONE (16:20)
[2021-08-16] MEDS ORDERED: ACETAMINOPHEN TAB 325 MG TAB PO PRN (17:00)
--- NOTE | 2021-08-16 17:18 | P.HPCAR ---
History of Present Illness This is Dr. Malik dictating an H/P on this patient The patient was interviewed and examined IMPRESSION / ASSESSMENT: Symptomatic persistent atrial fibrillation History of Danny. mairetta with RVR History of atrial tachycardia with one-to-one conduction Immediate recurrence of atrial fibrillation post-cardioversion, on amiodarone Preserved LV systolic function During sinus rhythm he is first-degree AV block Morbid obesity Hypertension Type 2 diabetes PLAN: Pulmonary vein isolation for A. mari[place] management HPI Patient has symptoms of palpitations and shortness of breath with atrial fibrillation He also has hypertension diabetes He has failed electrical cardioversion in immediate recurrence of atrial fibrillation ROS: No fever chills or rigors, no cough, phlegm or expectoration, no nausea, vomiting or diarrhea, no hematuria, dysuria, no musculoskeletal complaints, no strokes or seizures, no skin lesions. EXAMINATION: Temperature 98.4F, pulse rate in the 70s, blood pressure 171/77 Normal breath sounds no rhonchi no crackles Normal heart sounds Abdomen soft Morbid obesity REVIEW OF LABS, ECG & MEDICAL DATA Negative for coronavirus Physical Exam Vitals: Vital Signs Temp Pulse Resp BP Pulse Ox 08/16/21 10:31 98.4 F 72 16 171/77 98 Intake and Output 08/16/21 08/16/21 08/16/21 06:59 14:59 22:59 Intake Total 764 Balance 764 Intake: IV 764 Other: Weight 174 kg Past Medical History Past Medical History: Atrial Fibrillation, Heart Failure, COPD, Diabetes Mellitus, GERD/Reflux, Hyperlipidemia, Pneumonia, Supraventricular Tachycardia (SVT), Vascular Disorder Additional Past Medical History / Comment(s): See Dr Malik's H&P. Chronic edema to bilateral lower extremities. "Patient states had heart attack but Dr Marla chanel said no eveidence of it". Neuropathy in bilateral legs. Wound to upper right leg and to left ankle area both [facility]. O2 PRN.(Not portable.) History of Any Multi-Drug Resistant Organisms: None Reported Past Surgical History: Orthopedic Surgery Additional Past Surgical History / Comment(s): Left foot 4 and 5th toe amputation, back portion of teeth surgically removed-needs total removal of all teeth, cardioversion X2. Past Anesthesia/Blood Transfusion Reactions: No Reported Reaction Past Psychological History: Anxiety Smoking Status: Current every day smoker Past Alcohol Use History: None Reported Additional Past Alcohol Use History / Comment(s): "Smoker 30+ yrs, amount per day varies on weather." Past Drug Use History: None Reported - Past Family History Father Family Medical History: Cancer, Congestive Heart Failure (CHF) Mother Additional Family Medical History / Comment(s): Mother is legally blind. Physical Examination Vital Signs Temp Pulse Resp BP Pulse Ox 08/16/21 10:31 98.4 F 72 16 171/77 98 Intake and Output 08/16/21 08/16/21 08/16/21 06:59 14:59 22:59 Intake Total 764 Balance 764 Intake: IV 764 Other: Weight 174 kg Results Current Medications Generic Name Dose Route Start Last Admin Trade Name Freq PRN Reason Stop Dose Admin Acetaminophen 650 mg 08/16/21 17:00 Acetaminophen Tab 325 Mg Tab PO 09/15/21 17:01 Q6HR PRN Mild Pain Apixaban 5 mg 08/16/21 10:30 08/16/21 10:34 Apixaban 5 Mg Tab PO 09/15/21 10:31 5 mg BID DOLORES Administration Protocol Atorvastatin Calcium 40 mg 08/16/21 21:00 Atorvastatin 40 Mg Tab PO 09/15/21 21:01 HS [facility] Bupropion HCl 150 mg 08/16/21 21:00 Bupropion Sr 150 Mg Tablet.Er PO 09/15/21 21:01 BID DOLORES Famotidine 20 mg 08/16/21 21:00 Famotidine 20 Mg Tab PO 09/15/21 21:01 BID DOLORES Furosemide 40 mg 08/17/21 09:00 Furosemide 40 Mg Tab PO 09/16/21 09:01 DAILY [facility] Gabapentin 600 mg 08/16/21 22:00 Gabapentin 300 Mg Cap PO 09/15/21 22:01 TID DOLORES Hydromorphone HCl 0.5 mg 08/16/21 07:00 Hydromorphone 0.5 Mg/0.5 Ml Syringe IVP 08/16/21 23:00 Q5M PRN Phase 1 or 2 - Pain Control Acetaminophen 1,000 mg/ IV 100 mls @ 400 mls/hr 08/16/21 18:00 Solution IVPB 08/16/21 18:14 ONCE ONE Lidocaine HCl 0.1 ml 08/16/21 05:59 Lidocaine 1% (10mg/Ml) For Iv Start INTRADERMA 09/15/21 06:00 PER PROTOCOL PRN IV Start Metoclopramide HCl 10 mg 08/16/21 07:00 Metoclopramide 5 Mg/Ml 2 Ml Vial IVP 08/16/21 23:00 ONCE PRN Phase 1 or 2 - Nausea/Vomiting Midazolam HCl 2 mg 08/16/21 05:59 Midazolam 2 Mg/2 Ml Vial IV 08/17/21 06:00 ONCE PRN Pre-Op Anxiety Sodium Chloride 12 ml 08/16/21 17:00 Sodium Chloride 0.9% Flush 10 Ml Syringe IV 09/15/21 17:01 Q12HR PRN Line Flush Intake and Output 08/16/21 08/16/21 08/16/21 06:59 14:59 22:59 Intake Total 764 Balance 764 Intake: IV 764 Other: Weight 174 kg Patient Weight 08/17/21 06:59 Weight 174 kg
--- NOTE | 2021-08-16 17:20 | P.PCN ---
Preoperative Diagnosis: Extended procedure duration Very obese gentleman, morbid obesity Access in the right femoral veins as well as the left femoral veins was challenging After substantial effort was able to access it comfortably However the [place] hemostasis on the right side slipped at the end of the procedure by positioning Hemostasis was applied and state with good hemostasis During the procedure the carinal sheath was felt very short and buried recrossed over to the left atrium across the septum As a result it is difficult to occlude the left superior left inferior in the right superior vein Direct pressure on the balloon catheter to be applied The carinal sheath actually was pushed into the right atrium Multiple attempts to be made for each vein Different branches of the veins were cannulated to allow for the best occlusion However the left superior left inferior and right superior veins was successfully isolated and well occluded The only straightforward vein was actually the right inferior pulmonary vein
--- NOTE | 2021-08-16 17:44 | P.EPPROC ---
- EP Procedure Note Electrophysiology Procedure Note: PROCEDURE A. fib ablation/pulmonary vein isolation, antral DIAGNOSIS Persistent Atrial fibrillation, symptomatic, refractory to therapy RESULT No left atrial appendage mass seen on intracardiac echo Successful A. fib ablation/pulmonary vein isolation of all veins using cryo- ablation Complete entrance block in all 4 veins confirmed No evidence for phrenic nerve injury Small left atrium, when the cryo balloon was inflated for the left-sided veins, the cryo sheaths would backout into the right atrium Esophageal deflection YES PROCEDURE DETAILS Patient was brought to the EP lab in a fasting state after obtaining written informed consent. Procedure performed under general anesthesia Esophagus was intubated. Esophageal temperature monitoring with circa catheter. Esophageal deflection with an endoscope to avoid hypothermia of the esophagus. After initial muscle relaxant use, muscle relaxants were not given thereafter in order to assess phrenic nerve during procedure. Patient prepped and draped as per protocol Cryo ablation-set up with standard preparation of the cryoablation tools done. Femoral Venous access obtained on the right and left groins and sheaths placed Diagnostic catheters for the high right atrium, phrenic nerve stimulation and pacing, His bundle, coronary sinus placed Intracardiac echo catheter placed. Long sheath placed in the right atrium Left and right transseptal catheterization performed under intracardiac echo guidance. Intravenous heparin with aCT above 300 Later, catheter positioning and balloon positioning in the left atrium and pulmonary veins, under intracardiac echo guidance Diagnostic EP study with coronary sinus pacing and recording Baseline measurements: Sinus cycle length 851 ms, WI interval 174 ms and QRS 99 ms, QT 419 ms AH 112 and HV 71 ms Sinus recovery times at 600, 504 100 ms were 1231, 1246 and 1271 ms Corresponding corrected sinus node recovery times abnormal AV node Wenckebach block 300 ms Transseptal catheterization performed RA pressure 21/13/17 LA pressure 24/1/16 Transseptal catheterization performed with standard sheath. The cryoablation sheath was then placed with an over the wire exchange without any acute complications. The cryoablation balloon was placed in the office of each pulmonary vein and all 4 pulmonary veins were isolated. IV dye was injected to confirm occlusion. Goal: achieve complete occlusion of the pulmonary vein, achieve -30 degrees C at 30 seconds and achieve -40 degrees C at 60 seconds and a time to effect of less than 60 seconds. If not, the balloon was repositioned to obtain this result After completion of Cryoblation with durations from 180-240 seconds, entrance block was confirmed with the Attain circular catheter in a roving fashion around the antrum of the pulmonary veins Phrenic nerve pacing was performed from the SVC, right innominate vein area and diaphragm voltage was monitored. Diaphragmatic contractions were also monitored manually for strength of contraction. At the end of the procedure the Achieve catheter was once again used to check for entrance block Phrenic nerve stimulation was performed to confirm diaphragmatic stimulation the end of the procedure Cine fluoroscopy was performed at the very end of the procedure to confirm movement of both diaphragms with inspiration and expiration At the end of the procedure the patient was extubated Venous sheaths were removed and hemostasis assured with a closure device PROCEDURES PERFORMED Diagnostic EP study CS pacing and recording Left and right transseptal catheterization Catheter the mapping of the tachycardia Intracardiac echocardiography Pulmonary vein isolation with transseptal and comprehensive EPS, [id number] Extended duration procedure, separate dictation
--- NOTE | 2021-08-16 17:46 | P.PCN ---
Preoperative Diagnosis: Left atrial septal ablation Left atrial separate ablation was performed with cannulation of the inferior branch of the right superior pulmonary vein Cryoablation was performed in between the ablations for right superior and right inferior pulmonary veins No electrograms noted around the septum in between the veins after this ablation
[2021-08-16] MEDS ORDERED: ACETAMINOPHEN IV (For NPO) 1,000 MG in EMPTY BAG 1 BAG IVPB ONE (18:00)
[2021-08-16 19:56] LABS: Glucose,Whole Blood 242 mg/dL (75-99)
[2021-08-16] MEDS ORDERED: ATORVASTATIN 40 MG TAB PO SCH (21:00)
[2021-08-16] MEDS ORDERED: APIXABAN 5 MG TAB PO SCH (21:00)
[2021-08-16] MEDS: GABAPENTIN 300 MG CAP PO SCH (21:51)
[2021-08-16] MEDS: buPROPion SR 150 MG TABLET.ER PO SCH (21:52)
[2021-08-16] MEDS: FAMOTIDINE 20 MG TAB PO SCH (21:52)
[2021-08-16] MEDS: INSULIN ASPART (NovoLOG) 100 UNIT/ML VIAL SQ SCH (21:53)
[2021-08-17 01:16] VITALS: TEMP 98.1
[2021-08-17 06:57] LABS: Glucose,Whole Blood 221 mg/dL (75-99)
[2021-08-17 07:29] VITALS: BP 111/73; PULSE 81; RESP 17
[2021-08-17] MEDS: GABAPENTIN 300 MG CAP PO SCH (08:35)
[2021-08-17] MEDS: INSULIN ASPART (NovoLOG) 100 UNIT/ML VIAL SQ SCH (08:35)
[2021-08-17] MEDS: FAMOTIDINE 20 MG TAB PO SCH (08:35)
[2021-08-17] MEDS: buPROPion SR 150 MG TABLET.ER PO SCH (08:36)
--- NOTE | 2021-08-17 08:42 | DS ---
DISCHARGE SUMMARY Mr. Wagner is resting comfortably in bed. He has no chest discomfort, dizziness, lightheadedness. No palpitations. His rhythm is normal. His 12-lead EKG is normal, normal ST segments. On examination, his blood pressure is in the normal range. Heart rates are in the 80s. Normal heart sounds. Normal S1, normal S2. No murmurs. Lungs are clear. His groins have actually healed up quite well. IMPRESSION: Persistent atrial fibrillation, status post PVI yesterday. PLAN: 1. Discharge home later today. 2. Continue anticoagulation. 3. Stop digoxin. 4. Follow with Dr. Eden, his primary care physician, for removing the FlowStasis device. 5. Follow up with Dr. Arcos within 2 weeks to check right and left groins. MMODL / IJN: [id number] /
[2021-08-17] MEDS: APIXABAN 5 MG TAB PO SCH (08:48)
[2021-08-17] MEDS ORDERED: FUROSEMIDE 40 MG TAB PO SCH (09:00)
== END 2021-08-17 12:58 | disposition home or self-care (01) ==
LOC: CATHEP 09:59 → 6NMEDSUR 17:01 → CATHEP 08-17 12:58
PROVIDERS: ATTEND Internal Medicine Clinical Cardiac Electrophysiology
DX: I48.19 Other persistent atrial fibrillation (principal); E66.01 Morbid (severe) obesity due to excess calories; E11.40 Type 2 diabetes mellitus with diabetic neuropathy, unspecified; E78.5 Hyperlipidemia, unspecified; F17.200 Nicotine dependence, unspecified, uncomplicated; I11.0 Hypertensive heart disease with heart failure; I25.2 Old myocardial infarction; I44.0 Atrioventricular block, first degree; I50.9 Heart failure, unspecified; J44.9 Chronic obstructive pulmonary disease, unspecified; Z82.49 Family history of ischemic heart disease and other diseases of the circulatory system
CPT/HCPCS: 93662; 93609; 93656; 87635; C1894 ×2; C1769 ×4; C1760; C1730 ×2; C1759; C1893; C1733; C1766; J2250; J0330; J2720; J1644 ×2; S0106 ×2; J0690 ×2; J2001 ×2; J3010; J2370; J2704; Q9967